=== PATIENT | female | born 1945 | race Caucasian/White ===

== ENCOUNTER 2021-08-17 11:02 | Inpatient (IN) | payer OTHER ==
[2021-08-17] MEDS ORDERED: ALBUTEROL 2.5 MG/3 ML NEB SOL ONE (12:43)
[2021-08-17] MEDS ORDERED: METHYLPREDNISOLONE 125 MG INJ ONE (12:43)
[2021-08-17] MEDS ORDERED: IPRATROPIUM BROM 0.5MG/2.5ML ONE (12:43)
[2021-08-17] MEDS ORDERED: Levofloxacin 750mg IV 750 MG/150 ML BAG IV ONE (12:43)
[2021-08-17 12:48] LABS: Absolute Lymphocytes (CBC) 0.7 K/uL (0.7-4.9); Hematocrit 41.4 % (36.0-45.0); Lymphocytes % 4.1 % (15.3-44.8); MCV 91.1 fL (80-100); MPV 7.7 fL (7.6-11.3); RBC Red Blood Cell Count 4.54 M/uL (3.86-4.86)
[2021-08-17 12:54] LABS: Protime INR 1.27
[2021-08-17 13:09] LABS: Albumin 3.3 g/dL (3.4-5.0); Bilirubin Direct 0.2 mg/dL (0-0.2); Bilirubin Total 0.5 mg/dL (0.2-1.0); CKMB Creatine Kinase MB 2.8 ng/mL (1.0-3.6); Magnesium 2.1 mg/dL (1.8-2.4); Potassium 3.3 mmol/L (3.5-5.1); Protein, Total 7.8 g/dL (6.4-8.2)
--- NOTE | 2021-08-17 13:12 | RAD REPORT ---
EXAM DESCRIPTION: RAD - Chest Single View - 08/17/2021 12:40 pm CLINICAL HISTORY: CONGESTION, cough, shortness of breath COMPARISON: None TECHNIQUE: AP portable chest image was obtained 08/17/2021 12:40 pm . FINDINGS: No focal consolidations seen. Interstitial markings are prominent with the baseline patter n for the patient unknown. This could be fibrosis or minimal interstitial edema/ infiltrate. No hilar mass or lymphadenopathy. Heart and vasculature are normal. No measurable pleural effusion and no pneumothorax. No acute bony abnormality seen. No acute aortic findings suspected. IMPRESSION: No focal mass or consolidation. Prominent interstitial pattern on a baseline examination. This could be fibrosis, mild edema, mild in filtrate or a combination.
--- NOTE | 2021-08-17 15:31 | EDPHYS ---
[facility] Name: Patito Maher Age: 76 yrs Sex: Female : 1945 Arrival Date: 08/17/2021 Time: 11:04 Bed 8 Private MD: [facility] ED Physician Awilda Santo HPI: 08/17 12:48 This 76 yrs old Female presents to ER via Ambulatory with complaints of Sinus ma2 Congestion, Cough, Shortness Of Breath, Decreased Appetite. 12:48 Severity of symptoms: At their worst the symptoms were moderate. Associated signs and ma2 symptoms: Pertinent negatives: ear ache, nausea, rhinorrhea, sore throat. 76-year-old female history of COPD presents with shortness of breath, cough productive of green sputum no chest pain no fever.. Historical: - Allergies: 12:06 tramadol; vg1 - PMHx: 12:06 Chronic obstructive lung disease; vg1 - Immunization history:: Client reports receiving the 2nd dose of the Covid vaccine. - Social history:: Smoking status: Patient reports the use of cigarette tobacco products, smokes one-half pack cigarettes per day. - Family history:: not pertinent. ROS: 12:48 Constitutional: Negative for fever, chills, and weight loss. ma2 12:48 All other systems are negative. Exam: 12:48 Constitutional: This is a well developed, well nourished patient who is awake, alert, ma2 and in no acute distress. Head/Face: Normocephalic, atraumatic. Eyes: Pupils equal round and reactive to light, extra-ocular motions intact. Lids and lashes normal. Conjunctiva and sclera are non-icteric and not injected. Cornea within normal limits. Periorbital areas with no swelling, redness, or edema. ENT: Nares patent. No nasal discharge, no septal abnormalities noted. Tympanic membranes are normal and external auditory canals are clear. Oropharynx with no redness, swelling, or masses, exudates, or evidence of obstruction, uvula midline. Mucous membranes moist. Neck: Trachea midline, no thyromegaly or masses palpated, and no cervical lymphadenopathy. Supple, full range of motion without nuchal rigidity, or vertebral point tenderness. No Meningismus. Chest/axilla: Normal chest wall appearance and motion. Nontender with no deformity. No lesions are appreciated. Cardiovascular: Regular rate and rhythm with a normal S1 and S2. No gallops, murmurs, or rubs. Normal PMI, no JVD. No pulse deficits. Respiratory: wheezes all over, Lungs have equal breath sounds bilaterally, clear to auscultation and percussion. No rales, rhonchi noted. No increased work of breathing, no retractions or nasal flaring. Abdomen/GI: Soft, non-tender, with normal bowel sounds. No distension or tympany. No guarding or rebound. No evidence of tenderness throughout. MS/ Extremity: Pulses equal, no cyanosis. Neurovascular intact. Full, normal range of motion. Neuro: Awake and alert, GCS 15, oriented to person, place, time, and situation. Cranial nerves II-XII grossly intact. Motor strength 5/5 in all extremities. Sensory grossly intact. Cerebellar exam normal. Normal gait. Vital Signs: 11:53 BP 119 / 79; Pulse 102; Resp 22; Temp 97.9(TE); Pulse Ox 77% on R/A; Weight 74.84 kg; vg1 Height 5 ft. 4 in. (162.56 cm); Pain 0/10; 11:54 Pulse Ox 96% on 15% Non-rebreather mask; vg1 11:58 Pulse Ox 93% on 4 lpm NC; vg1 12:21 BP 104 / 87; Pulse 100; Resp 16; Pulse Ox 95% on 4 lpm NC; ld1 13:27 BP 106 / 76; Pulse 101; Resp 18; Pulse Ox 98% on 3 lpm NC; Pain 0/10; ld1 15:09 BP 117 / 83; Pulse 92; Resp 15; Pulse Ox 95% on 4 lpm NC; ld1 16:47 BP 112 / 79; Pulse 93; Resp 17; Pulse Ox 95% on 4 lpm NC; ld1 11:53 Body Mass Index 28.32 (74.84 kg, 162.56 cm) vg1 MDM: 12:02 Patient medically screened. ma2 15:29 Differential Diagnosis: Upper Respiratory Infection Sinusitis Pharyngitis. Data ma2 reviewed: vital signs, nurses notes. Counseling: I had a detailed discussion with the patient and/or guardian regarding: the historical points, exam findings, and any diagnostic results supporting the discharge/admit diagnosis, the presence of at least one elevated blood pressure reading (>120/80) during this emergency department visit, the need for outpatient follow up. Response to treatment: the patient's symptoms have markedly improved after treatment. 08/17 12:12 Order name: SARS-COV-2 RT PCR (Document "Date of Onset" if Symptomatic); Complete Time: em1 13:08/17 12:12 Order name: Flu; Complete Time: 13:23 08/17 12:28 Order name: BMP; Complete Time: 13:23 il08/17 12:28 Order name: Blood Culture Adult (2) il2 08/17 12:28 Order name: CBC with Diff; Complete Time: 13:23 il08/17 12:28 Order name: CPK; Complete Time: 13:23 il08/17 12:28 Order name: Ckmb; Complete Time: 13:23 il08/17 12:28 Order name: D-Dimer; Complete Time: 13:23 il08/17 12:28 Order name: Hepatic Function; Complete Time: 13:23 08/17 12:28 Order name: Lipase; Complete Time: 13:23 il08/17 12:28 Order name: Magnesium; Complete Time: 13:23 il08/17 12:28 Order name: NT PRO-BNP; Complete Time: 13:23 08/17 12:28 Order name: PT-INR; Complete Time: 13:23 il08/17 12:28 Order name: Ptt, Activated; Complete Time: 13:23 [facility] 08/17 16:02 Order name: Basic Metabolic Panel [facility] [place] 08/17 16:02 Order name: Basic Metabolic Panel [facility] [place] 08/17 16:02 Order name: CBC with Automated Diff [facility] [place] 08/17 16:02 Order name: CBC with Automated Diff [facility] [place] 08/17 16:02 Order name: CKMB Creatine Kinase MB [facility] [place] 08/17 16:02 Order name: CKMB Creatine Kinase MB [facility] [place] 08/17 16:02 Order name: CKMB Creatine Kinase MB [facility] [place] 08/17 16:02 Order name: CKMB Creatine Kinase MB [facility] [place] 08/17 16:02 Order name: Creatine Phosphokinase [facility] [place] 08/17 16:02 Order name: Creatine Phosphokinase [facility] [place] 08/17 16:02 Order name: Creatine Phosphokinase [facility] [place] 08/17 16:02 Order name: Creatine Phosphokinase [facility] [place] 08/17 16:02 Order name: Lipid Profile [facility] [place] 08/17 16:02 Order name: Lipid Profile [facility] [place] 08/17 12:28 Order name: XRAY CXR (1 view); Complete Time: 13:23 [facility] 08/17 12:28 Order name: EKG; Complete Time: 12:29 [facility] 08/17 12:28 Order name: Cardiac monitoring; Complete Time: 12:30 [facility] 08/17 12:28 Order name: EKG - Nurse/Tech; Complete Time: 12:30 [facility] 08/17 12:28 Order name: IV Saline Lock; Complete Time: 12:30 [facility] 08/17 12:28 Order name: Labs collected and sent; Complete Time: 12:30 [facility] 08/17 12:28 Order name: O2 Per Protocol; Complete Time: 12:30 [facility] 08/17 12:28 Order name: O2 Sat Monitoring; Complete Time: 12:30 [facility] 08/17 16:02 Order name: 60g Consistent Carbohydrate (ADA 1800/2000) [facility] [place] 08/17 16:02 Order name: Magnesium [facility] [place] 08/17 16:02 Order name: Magnesium [facility] [place] Administered Medications: 12:57 Drug: LevaQUIN (levofloxacin) 750 mg Volume: 150 ml; Route: IVPB; Infused Over: 90 ld1 mins; Site: right antecubital; 12:59 Drug: Albuterol 2.5 mg Route: Inhalation; ld1 12:59 Drug: AtroVENT (ipratropium) Aerosol 0.5 mg Route: Inhalation; ld1 12:59 Drug: SOLU-Medrol (methylPrednisoLONE) 125 mg Route: IVP; Site: right antecubital; ld1 Disposition Summary: 08/17/21 15:30 Hospitalization Ordered Hospitalization Status: Inpatient Admission ma2 Provider: Edu Gao ma2 Location: Telemetry/MedSurg (Inpatient) ma2 Condition: Stable ma2 Problem: new ma2 Symptoms: are unchanged ma2 Bed/Room Type: Standard il2 Room Assignment: 410(08/17/21 18:08) dw Diagnosis - Other pneumonia, unspecified organism ma2 - COPD/ Chronic obstructive pulmonary disease, unspecified ma2 Forms: - Medication Reconciliation Form ma2 - SBAR form ma2 Signatures: Dispatcher [employer] Kenzie Spain RN RN dw Awilda Santo MD MD ma2 Evelina Herrera RN RN vg1 Francesca Chin RN RN ld1 Corrections: (The following items were deleted from the chart) 18:08 15:30 jose a gardner
--- NOTE | 2021-08-17 15:31 | ER ---
Nurse's Notes [facility] Name: Patito Maher Age: 76 yrs Sex: Female : 1945 Arrival Date: 08/17/2021 Time: 11:04 Bed 8 Private MD: Fly Mohamud Diagnosis: Other pneumonia, unspecified organism;COPD/ Chronic obstructive pulmonary disease, unspecified Presentation: 08/17 11:58 Initial Sepsis Screen: Does the patient meet any 2 criteria? RR > 20 per min. HR > 90 vg1 bpm. Yes Does the patient have a suspected source of infection? No. Patient's initial sepsis screen is negative. Risk Assessment: Do you want to hurt yourself or someone else? Patient reports no desire to harm self or others. Onset of symptoms was August 14, 2021. 11:58 Acuity: CAROLEE 2 vg1 12:02 Chief complaint: Patient states: cough, congestion, and SOB x 4 days, also states vg1 nausea; denies V/D. Pt presented with 77% RA in triage; placed on non rebreather 15 mL 96%; placed in room at 4 L NC O2 at 93%. Coronavirus screen: Vaccine status: Patient reports receiving the 2nd dose of the covid vaccine. Client denies travel out of the [place] in the last 14 days. Ebola Screen: Patient denies exposure to infectious person. Patient denies travel to an Ebola-affected area in the 21 days before illness onset. 12:02 Method Of Arrival: Ambulatory vg1 Triage Assessment: 12:06 General: Appears uncomfortable, Behavior is calm, cooperative. Pain: Denies pain. vg1 Respiratory: Reports shortness of breath at rest on exertion cough that is labored breathing Onset: The symptoms/episode began/occurred x 4 days, the patient has moderate shortness of breath. Historical: - Allergies: 12:06 tramadol; vg1 - PMHx: 12:06 Chronic obstructive lung disease; vg1 - Immunization history:: Client reports receiving the 2nd dose of the Covid vaccine. - Social history:: Smoking status: Patient reports the use of cigarette tobacco products, smokes one-half pack cigarettes per day. - Family history:: not pertinent. Screenin:21 Abuse screen: Denies threats or abuse. Denies injuries from another. Nutritional ld1 screening: No deficits noted. Tuberculosis screening: No symptoms or risk factors identified. Fall Risk None identified. Assessment: 12:21 General: Appears in no apparent distress. comfortable, Behavior is calm, cooperative, ld1 appropriate for age. Pain: Denies pain. Neuro: Level of Consciousness is awake, alert, obeys commands, Oriented to person, place, time, situation, Appropriate for age. Cardiovascular: Capillary refill < 3 seconds Patient's skin is warm and dry. Rhythm is sinus rhythm. Respiratory: Reports shortness of breath at rest on exertion Airway is patent Respiratory effort is even, unlabored, Breath sounds with wheezes bilaterally. Onset: The symptoms/episode began/occurred just prior to arrival, the patient has mild shortness of breath. GI: Abdomen is round non-distended. : No signs and/or symptoms were reported regarding the genitourinary system. EENT: No signs and/or symptoms were reported regarding the EENT system. Derm: No signs and/or symptoms reported regarding the dermatologic system. Musculoskeletal: No signs and/or symptoms reported regarding the musculoskeletal system. 15:09 Reassessment: Patient appears in no apparent distress at this time. Patient and/or ld1 family updated on plan of care and expected duration. Pain level reassessed. Patient is alert, oriented x 3, equal unlabored respirations, skin warm/dry/pink. 18:20 Reassessment: Attempted to call report - nurse was busy and would not accept report. ld1 Vital Signs: 11:53 BP 119 / 79; Pulse 102; Resp 22; Temp 97.9(TE); Pulse Ox 77% on R/A; Weight 74.84 kg; vg1 Height 5 ft. 4 in. (162.56 cm); Pain 0/10; 11:54 Pulse Ox 96% on 15% Non-rebreather mask; vg1 11:58 Pulse Ox 93% on 4 lpm NC; vg1 12:21 BP 104 / 87; Pulse 100; Resp 16; Pulse Ox 95% on 4 lpm NC; ld1 13:27 BP 106 / 76; Pulse 101; Resp 18; Pulse Ox 98% on 3 lpm NC; Pain 0/10; ld1 15:09 BP 117 / 83; Pulse 92; Resp 15; Pulse Ox 95% on 4 lpm NC; ld1 16:47 BP 112 / 79; Pulse 93; Resp 17; Pulse Ox 95% on 4 lpm NC; ld1 11:53 Body Mass Index 28.32 (74.84 kg, 162.56 cm) vg1 ED Course: 11:04 Patient arrived in ED. as 11:04 Fly Mohamud DO is Private Physician. as 11:56 Awilda Santo MD is Attending Physician. ma2 12:06 Triage completed. vg1 12:06 Arm band placed on. vg1 12:11 Francesca Chin, JAQUAN is Primary Nurse. ld1 12:15 SARS-COV-2 RT PCR (Document "Date of Onset" if Symptomatic) Sent. zm 12:15 Flu Sent. zm 12:21 Patient has correct armband on for positive identification. Placed in gown. Bed in low ld1 position. Call light in reach. Side rails up X2. monitoring tech on. Pulse ox on. NIBP on. Door closed. Noise minimized. Warm blanket given. 12:21 No provider procedures requiring assistance completed. ld1 12:35 Flu Sent. ld1 12:35 SARS-COV-2 RT PCR (Document "Date of Onset" if Symptomatic) Sent. ld1 12:42 XRAY CXR (1 view) In Process Unspecified. EDMS 15:29 Edu Gao MD is Hospitalizing Provider. ma2 Administered Medications: 12:57 Drug: LevaQUIN (levofloxacin) 750 mg Volume: 150 ml; Route: IVPB; Infused Over: 90 ld1 mins; Site: right antecubital; 12:59 Drug: Albuterol 2.5 mg Route: Inhalation; ld1 12:59 Drug: AtroVENT (ipratropium) Aerosol 0.5 mg Route: Inhalation; ld1 12:59 Drug: SOLU-Medrol (methylPrednisoLONE) 125 mg Route: IVP; Site: right antecubital; ld1 Medication: 12:21 VIS not applicable for this client. ld1 Outcome: 15:30 Decision to Hospitalize by Provider. ma2 19:34 Patient left the ED. bb Signatures: Dispatcher [employer] EDMS Misty Krishna Brenda, RN RN bb Alzahri, Mohammad, MD MD ma2 Evelina Herrera RN RN 1 Francesca Chin RN RN ld1 Michela Krishna
[2021-08-17] MEDS ORDERED: ACETAMINOPHEN 500 MG TAB PO PRN (15:53)
[2021-08-17] MEDS ORDERED: ALBUTEROL 2.5 MG/3 ML NEB SOL NEB PRN (15:53)
[2021-08-17] MEDS ORDERED: IPRATROPIUM BROM 0.5MG/2.5ML NEB PRN (15:53)
--- NOTE | 2021-08-17 16:02 | P.HP ---
Certification for Inpatient Patient admitted to: Observation With expected LOS: <2 Midnights Practitioner: I am a practitioner with admitting privileges, knowledge of patient current condition, hospital course, and medical plan of care. Services: Services provided to patient in accordance with Admission requirements found in Title 42 Section 412.3 of the Code of Federal Regulations Patient History Date of Service: 08/17/21 Reason for admission: COPD exacerbation, Pneumonia, Resp failure with hypoxia. History of Present Illness: 76-year-old female patient with medical history significant for coronary artery disease, hypertension, hyperlipidemia, COPD who was evaluated for management of COPD exacerbation. Initially she had complained of shortness of breath that started suddenly with no associated fever or chills. Neck. She denies any issues with chest pain, swelling of the lower extremity. In the ED she had x- ray done that revealed infiltrate bilaterally and there was suspicion for pneumonia as she also had elevated white cell of 16,000. She was started on empiric antibiotic therapy of Levaquin and was a started on DuoNeb therapy and was admitted for observation. Home medications list reviewed: Yes - Past Medical/Surgical History Has patient received pneumonia vaccine in the past: No Diabetic: No -: COPD -: Hypertension -: Hyperlipidemia - Social History Smoking Status: Former smoker Smoking therapy provided: No Alcohol use: No CD- Drugs: No Caffeine use: Yes Review of Systems General: Unremarkable Eyes: Unremarkable ENT: Unremarkable Respiratory: Cough, Shortness of Breath, SOB with Excertion Cardiovascular: Unremarkable Gastrointestinal: Unremarkable Genitourinary: Unremarkable Musculoskeletal: Unremarkable Neurological: Unremarkable Physical Examination - Physical Exam General: Alert, Oriented x3 HEENT: Normocephalic Neck: Supple Respiratory: Diminished Cardiovascular: Regular rate/rhythm, Normal S1 S2 Gastrointestinal: Soft and benign Musculoskeletal: No swelling Neurological: Normal speech, Normal strength at 5/5 x4 extr - Studies Laboratory Data (last 24 hrs) 08/17/21 12:33: PT 14.0 H, INR 1.27, APTT 29.8 08/17/21 12:33: WBC 16.3 H, Hgb 13.4, Hct 41.4, Plt Count 255 08/17/21 12:33: Sodium 139, Potassium 3.3 L, BUN 22 H, Creatinine 0.76, Glucose 132 H, Magnesium 2.1, Total Bilirubin 0.5, AST 28, ALT 39, Alkaline Phosphatase 103, Lipase 16 L Microbiology Data (last 24 hrs): 08/17/21 12:15 Nasopharnyx Influenza Type A Antigen Screen - Final 08/17/21 12:15 Nasopharnyx Influenza Type B Antigen Screen - Final Assessment and Plan - Plan COPD Exacerbation: Patient does have COPD exacerbation with pneumonia. White cell count is increased with value of 16,000. Chest x-ray shows infiltrate. Continue Levaquin for treatment. Continued . Continue Solu-Medrol. Pneumonia: Chest x-ray shows infiltrates bilaterally. Levaquin started for empiric therapy. Monitor closely. Hypertension: We will monitor vital signs per unit protocol and continue antihypertensive medications. Hyperlipidemia: We will continue statin therapy. Prophylaxis: Lovenox for DVT prophylaxis. CODE STATUS: Full code. Disposition: We will have patient evaluated and discharge in next 24 to 48 hours once clinically stable. - Advance Directives Does patient have a Living Will: No Does patient have a Durable POA for Healthcare: No
[2021-08-17] MEDS: INSULIN -REGULAR HUMAN 50 UNIT/0.5 ML ML SQ SCH ×2 (16:30→22:32)
[2021-08-17 17:38] LABS: CKMB Creatine Kinase MB 2.9 ng/mL (1.0-3.6)
[2021-08-17] MEDS: METHYLPREDNISOLONE 40 MG INJ IV SCH (22:27)
[2021-08-18 01:11] VITALS: BMI 28.3
[2021-08-18 01:11] LABS: CKMB Creatine Kinase MB 4.1 ng/mL (1.0-3.6)
[2021-08-18 04:31] LABS: Absolute Lymphocytes (CBC) 0.6 K/uL (0.7-4.9); Hematocrit 38.5 % (36.0-45.0); Lymphocytes % 5.2 % (15.3-44.8); MCV 89.5 fL (80-100); MPV 7.8 fL (7.6-11.3)
[2021-08-18 04:48] LABS: Magnesium 2.2 mg/dL (1.8-2.4); Phosphorus 2.5 mg/dL (2.5-4.9); Potassium 3.8 mmol/L (3.5-5.1)
[2021-08-18 05:07] LABS: Blood Morphology Comment NOT SEEN (NOT SEEN); Platelet Estimate ADEQ
[2021-08-18] MEDS: INSULIN -REGULAR HUMAN 50 UNIT/0.5 ML ML SQ SCH ×4 (07:30→21:00)
[2021-08-18] MEDS: ENOXAPARIN 40 MG/0.4 ML SQ SCH (08:28)
[2021-08-18] MEDS: POTASS/SODIUM PHOSPHATE 1 PKT POWD.PACK PO SCH ×3 (08:29→10:16)
[2021-08-18] MEDS: METHYLPREDNISOLONE 40 MG INJ IV SCH ×4 (08:29→23:42)
[2021-08-18] MEDS ORDERED: POTASSIUM CL SA 10 MEQ TAB PO ONE (09:00)
[2021-08-18 11:00] LABS: CKMB Creatine Kinase MB 3.8 ng/mL (1.0-3.6)
[2021-08-18] MEDS ORDERED: Levofloxacin 750mg IV 750 MG/150 ML BAG IV SCH (12:00)
[2021-08-18] MEDS: ALBUTEROL 2.5 MG/3 ML NEB SOL NEB SCH ×3 (12:03→20:25)
[2021-08-18] MEDS: IPRATROPIUM BROM 0.5MG/2.5ML NEB SCH ×3 (12:03→20:25)
[2021-08-18] MEDS ORDERED: PNEUMOCOCCAL VACCINE 0.5 ML IMVAC ONE (13:00)
--- NOTE | 2021-08-18 14:42 | EKG ---
Test Date: 2021-08-17 Test Time: 12:19:10 Framework Developer: VINAYAK MEASUREMENT RESULTS: Intervals: Rate: 98 NE: 128 QRSD: 76 QT: 370 QTc: 472 [place]: P: 71 NE: 128 QRS: 54 T: 67 INTERPRETIVE STATEMENTS: Normal sinus rhythm Septal infarct, age undetermined Abnormal ECG No previous ECG available for comparison Electronically Signed On 08-18-21 14:40:47 CDT by Dylan Clayton
[2021-08-19] MEDS: IPRATROPIUM BROM 0.5MG/2.5ML NEB SCH ×3 (01:30→14:06)
[2021-08-19] MEDS: ALBUTEROL 2.5 MG/3 ML NEB SOL NEB SCH ×3 (01:30→14:06)
[2021-08-19] MEDS: METHYLPREDNISOLONE 40 MG INJ IV SCH (05:22)
[2021-08-19 05:48] LABS: Potassium 4.4 mmol/L (3.5-5.1)
[2021-08-19] MEDS: INSULIN -REGULAR HUMAN 50 UNIT/0.5 ML ML SQ SCH ×2 (07:30→11:27)
[2021-08-19] MEDS: ENOXAPARIN 40 MG/0.4 ML SQ SCH (08:31)
--- NOTE | 2021-08-19 08:42 | P.CNS ---
Date of Consult: 08/19/21 Reason for Consult: COPD exacerbation Chief Complaint: COPD exacerbation History of Present Illness: Patient is 76 years of age just come back from [place] has been sick for about 3 weeks having this productive phlegm apparently recently had some urinary frequency and urgency with a history of COPD and active smoker uses nebulizers and inhalers at home feeling a little better still short of breath Allergies No Known Allergies Allergy (Unverified 08/17/21 20:16) Home Medications: Albuterol Sulfate [Proair Hfa] 2 puff PO Q4H PRN 08/17/21 Citalopram Hydrobromide [Citalopram HBr] 1 tab PO DAILY 08/17/21 Hydrocodone Bit/Acetaminophen [[place] 7.5-325 Tablet] 1 tab PO BID PRN 08/17/21 Ipratropium/Albuterol Sulfate [Iprat-Albut 0.5-3(2.5) mg/3 ml] 1 vial.neb JORDAN Q6H 08/17/21 - Past Medical/Surgical History Diabetic: No -: COPD -: Hypertension -: Hyperlipidemia - Social History Smoking Status: Current every day smoker Alcohol use: No CD- Drugs: No Caffeine use: Yes Place of Residence: Home Review of Systems 10-point ROS is otherwise unremarkable Physical Examination Temp Pulse Resp BP Pulse Ox 97.9 F 79 19 118/62 95 08/19/21 04:00 08/19/21 04:00 08/19/21 04:00 08/19/21 04:00 08/19/21 04:00 General: Alert, In no apparent distress, Oriented x3 Respiratory: Diminished, Expiratory wheezes Cardiovascular: No edema, Normal pulses, Regular rate/rhythm Gastrointestinal: Normal bowel sounds, Soft and benign - Problems (1) COPD exacerbation Current Visit: Yes Status: Acute Plan: Patient is 76 years of age admitted with COPD exacerbation active smoker feeling better chest x-ray shows some interstitial changes white count elevated mild bandemia vital signs stable oxygenation satisfactory change to p.o. levofloxacin sputum cultures continue with nebs bronchodilators and steroids stable discharge tomorrow
[2021-08-19] MEDS ORDERED: levoFLOXacin 750 MG TAB PO SCH (09:00)
[2021-08-19] MEDS ORDERED: METHYLPREDNISOLONE 40 MG INJ IV SCH (09:00)
[2021-08-19 11:59] VITALS: BP 141/81; TEMP 96.8
[2021-08-19 14:55] VITALS: O2SAT 93
--- NOTE | 2021-08-19 23:59 | P.DS ---
Discharge Date: 08/19/21 Disposition: ROUTINE DISCHARGE Discharge Condition: GOOD Reason for Admission: COPD exacerbation Brief History of Present Illness: 76-year-old female patient with medical history significant for coronary artery disease, hypertension, hyperlipidemia, COPD who was evaluated for management of COPD exacerbation. Initially she had complained of shortness of breath that started suddenly with no associated fever or chills. Neck. She denies any issues with chest pain, swelling of the lower extremity. In the ED she had x- ray done that revealed infiltrate bilaterally and there was suspicion for pneumonia as she also had elevated white cell of 16,000. She was started on empiric antibiotic therapy of Levaquin and was a started on DuoNeb therapy and was admitted for observation. Hospital Course: Patient is breathing much better. We will arrange for home oxygen. She will also get nebulizer treatments as an outpatient. She will follow with Pulmonary as well. Clinically she is feeling much better and she is at her baseline and wanted to go home because it is our signs per day. She will follow-up as an outpatient in 1-2 weeks with Pulmonary and PCP. Vital Signs/Physical Exam: Temp Pulse Resp BP Pulse Ox 96.8 F 80 14 141/81 H 96 08/19/21 11:58 08/19/21 11:58 08/19/21 11:58 08/19/21 11:58 08/19/21 11:58 General: Alert, In no apparent distress, Oriented x3 Laboratory Data at Discharge: WBC 11.4 K/uL (4.3-10.9) H D 08/18/21 04:02 Hgb 12.7 g/dL (12.0-15.0) 08/18/21 04:02 Hct 38.5 % (36.0-45.0) 08/18/21 04:02 Plt Count 252 K/uL (152-406) 08/18/21 04:02 PT 14.0 SECONDS (9.5-12.5) H 08/17/21 12:33 INR 1.27 08/17/21 12:33 APTT 29.8 SECONDS (24.3-36.9) 08/17/21 12:33 Sodium 143 mmol/L (136-145) 08/19/21 05:17 Potassium 4.4 mmol/L (3.5-5.1) 08/19/21 05:17 BUN 26 mg/dL (7-18) H 08/19/21 05:17 Creatinine 0.61 mg/dL (0.55-1.3) 08/19/21 05:17 Glucose 197 mg/dL (74-106) H 08/19/21 05:17 Phosphorus 2.5 mg/dL (2.5-4.9) 08/18/21 04:02 Magnesium 2.2 mg/dL (1.8-2.4) 08/18/21 04:02 Total Bilirubin 0.5 mg/dL (0.2-1.0) 08/17/21 12:33 AST 28 U/L (15-37) 08/17/21 12:33 ALT 39 U/L (12-78) 08/17/21 12:33 Alkaline Phosphatase 103 U/L (45-117) 08/17/21 12:33 Triglycerides 67 mg/dL (<150) 08/18/21 04:02 Cholesterol 158 mg/dL (<200) 08/18/21 04:02 HDL Cholesterol 47 mg/dL (40-60) 08/18/21 04:02 Cholesterol/HDL Ratio 3.36 08/18/21 04:02 Lipase 16 U/L (73-393) L 08/17/21 12:33 Home Medications: Albuterol Sulfate [Proair Hfa] 2 puff PO Q4H PRN 08/17/21 Citalopram Hydrobromide [Citalopram HBr] 1 tab PO DAILY 08/17/21 Hydrocodone Bit/Acetaminophen [[place] 7.5-325 Tablet] 1 tab PO BID PRN 08/17/21 Ipratropium/Albuterol Sulfate [Iprat-Albut 0.5-3(2.5) mg/3 ml] 1 vial.neb JORDAN Q6H 08/17/21 Albuterol Neb [Proventil 0.083% Neb Soln] 2.5 mg NEB [id number] #60 amp 08/19/21 Ipratropium Neb [Atrovent*] 0.5 mg NEB [id number] #60 amp 08/19/21 levoFLOXacin [Levaquin*] 750 mg PO DAILY #5 tab 08/19/21 predniSONE [Prednisone*] 20 mg PO BID #11 tab 08/19/21 New Medications: Ipratropium Neb [Atrovent*] 0.5 mg NEB [id number] #60 amp levoFLOXacin [Levaquin*] 750 mg PO DAILY #5 tab predniSONE [Prednisone*] 20 mg PO BID #11 tab Albuterol Neb [Proventil 0.083% Neb Soln] 2.5 mg NEB [id number] #60 amp Physician Discharge Instructions: -DC IV and DC home -Follow-up with PCP in 1 to 2 weeks -Follow-up with Pulmonary in 1 to 2 weeks -Please call Dr. Kelly at [phone] if any questions regarding hospital stay -Please call nursing station at [phone] if any nursing or medication questions -Return to the emergency room if symptoms worsen Diet: AHA Activity: Fall precautions Followup: Howard Rogers MD [ACTIVE - CAN ADMIT] - 1 Week (Call for appointment.) Fly Mohamud DO [Primary Care Provider] - 1-2 Weeks (call for appointment.) Time spent managing pt's care (in minutes): 35
== END 2021-08-19 15:50 | disposition home or self-care (01) | DRG 190 ==
LOC: ER 11:02 → ERHOLD 15:54 → 4TH 19:25 → OBSVTOIN 08-18 13:50
PROVIDERS: ADMIT Internal Medicine Nephrology; ATTEND Internal Medicine Nephrology
DX: J44.0 Chronic obstructive pulmonary disease with (acute) lower respiratory infection (principal); J18.9 Pneumonia, unspecified organism; J44.1 Chronic obstructive pulmonary disease with (acute) exacerbation; I10 Essential (primary) hypertension; I25.10 Atherosclerotic heart disease of native coronary artery without angina pectoris; E78.5 Hyperlipidemia, unspecified; F17.210 Nicotine dependence, cigarettes, uncomplicated; Z20.822 Contact with and (suspected) exposure to COVID-19
CPT/HCPCS: 36415; 71045; 80048; 80061; 80076; 82550; 82553; 82947; 83690; 83735; 83880; 84100; 85025; 85379; 85610; 85730; 87040; 87804; 93005; 94640; 96374; 96375; 99285; G0378; J1650; J1815; J2920; J2930; U0003

== ENCOUNTER 2023-02-28 08:59 | Inpatient (IN) | payer OTHER ==
[2023-02-28] MEDS ORDERED: ONDANSETRON 4 MG/2 ML VIAL ONE (09:20)
[2023-02-28] MEDS ORDERED: NA CHLORIDE 0.9% 1,000 ML ONE ×2 (09:21→13:56)
[2023-02-28] MEDS ORDERED: MORPHINE 4 MG/ML SYR ONE ×2 (09:21→13:55)
[2023-02-28 09:26] LABS: Absolute Lymphocytes (CBC) 0.5 K/uL (0.7-4.9); Hematocrit 45.3 % (36.0-45.0); Lymphocytes % 4.1 % (15.3-44.8); MCV 91.2 fL (80-100); Platelets 299 thou/uL (152-406); RBC Red Blood Cell Count 4.97 M/uL (3.86-4.86)
[2023-02-28 09:44] LABS: Albumin 3.5 g/dL (3.4-5.0); Bilirubin Total 0.6 mg/dL (0.2-1.0); Potassium 4.5 mEq/L (3.5-5.1); Protein, Total 7.5 g/dL (6.4-8.2)
[2023-02-28] MEDS ORDERED: HYDROMORPHONE HCL 0.5 MG/0.5 ML INJ ONE (10:13)
[2023-02-28 10:36] LABS: Blood Morphology Comment NOT SEEN (NOT SEEN); Platelet Estimate ADEQ; White Blood Cell Scan OK (OK)
--- NOTE | 2023-02-28 10:55 | RAD REPORT ---
EXAM DESCRIPTION: CT - Abdomen Pelvis W Contrast - 02/28/2023 9:55 am CLINICAL HISTORY: ABD PAIN COMPARISON: No comparisons TECHNIQUE: Thin cut axial CT imaging of the abdomen and pelvis was performed following intravenous a dministration of 100 mL Isovue 300. Multiplanar reformats were generated and reviewed. All CT scans are performed using dose optimization technique as appropriate and may include automated exposure control or mA/KV adjustment according to patient size. FINDINGS: No suspicious findings in the lung bases. The liver, spleen, adrenal glands, and pancreas show no suspicious findings. Gallbladder and biliary tree are also without suspicious finding. Symmetric renal function is seen with no hydronephrosis or suspicious renal mass. Few parapelvic cyst s more pronounced on the left. Nonobstructing right renal calculi, largest measuring 3 mm. Mild colonic diverticulosis. Mild fluid distention and dilation of mid to distal small bowel loops. M ucosal hyperenhancement and adjacent fat stranding in the mesenteric. These gradually progress to a s egment of nondistended distal ileum with wall thickening and adjacent fat stranding extending to the terminal ileum. Mild free pelvic fluid. No free air, fluid collections, or other inflammatory strandi ng. No hernia, mass or bulky lymphadenopathy. The urinary bladder is without significant finding. No suspicious bony findings. IMPRESSION: Long segments of inflamed mid to distal small bowel with mild fluid distention proximall y, with gradual transition to distal to terminal ileum nondistention with persistent wall thickening and inflammation. Trace free pelvic fluid. Findings raise concern for infectious or inflammatory ente ritis, including but not limited to inflammatory bowel disease. Mild colonic diverticulosis. Nonobstructing right renal calculi, up to 3 mm in size.
--- NOTE | 2023-02-28 11:02 | EDPHYS ---
Physician Documentation [facility] Name: Patito Maher Age: 77 yrs Sex: Female : 1945 Arrival Date: 02/28/2023 Time: 08:59 Bed 5 Private MD: ED Physician Yfn Kolb HPI: 02/28 09:04 This 77 yrs old Female presents to ER via Unassigned with complaints of abdominal pain. jh7 09:04 The patient presents with abdominal pain that is diffuse. Onset: The symptoms/episode jh7 began/occurred this morning. The symptoms do not radiate. Associated signs and symptoms: Pertinent positives: nausea, Pertinent negatives: diarrhea, vomiting. The symptoms are described as constant, stabbing. Modifying factors: the symptoms are aggravated by breathing deeply, movement. Patient reports abdominal pain and nausea since this morning. Reports that she thinks she ate a bad taco salad last night. EMS reports the patient was hypotensive on scene at 80/40. Patient's BP increased after 200 mL of IV fluids. History of COPD. Last BM was normal and yesterday. PCP is Dr. Mohamud. Patient reports no other PMH or surgical history.. Historical: - Allergies: 09:12 tramadol; db - PMHx: 09:12 Chronic obstructive lung disease; db - Immunization history:: Adult Immunizations unknown. - Social history:: Smoking status: Patient reports the use of cigarette tobacco products, denies chronic smoking, but will smoke occasionally. ROS: 09:04 Constitutional: Negative for fever, chills, and weight loss, Neck: Negative for injury, jh7 pain, and swelling, Cardiovascular: Negative for chest pain, palpitations, and edema, Respiratory: Negative for shortness of breath, cough, wheezing, and pleuritic chest pain, Back: Negative for injury and pain, MS/Extremity: Negative for injury and deformity, Skin: Negative for injury, rash, and discoloration, Neuro: Negative for headache, weakness, numbness, tingling, and seizure, 09:04 Abdomen/GI: Positive for abdominal pain, nausea, Negative for vomiting, diarrhea, constipation, black/tarry stool, 09:04 All other systems are negative, Exam: 09:04 Head/Face: Normocephalic, atraumatic. Eyes: Pupils equal round and reactive to light, jh7 extra-ocular motions intact. Lids and lashes normal. Conjunctiva and sclera are non-icteric and not injected. Cornea within normal limits. Periorbital areas with no swelling, redness, or edema. ENT: Nares patent. No nasal discharge, no septal abnormalities noted. Tympanic membranes are normal and external auditory canals are clear. Oropharynx with no redness, swelling, or masses, exudates, or evidence of obstruction, uvula midline. Mucous membranes moist. Neck: Trachea midline, no thyromegaly or masses palpated, and no cervical lymphadenopathy. Supple, full range of motion without nuchal rigidity, or vertebral point tenderness. No Meningismus. Cardiovascular: Regular rate and rhythm with a normal S1 and S2. No gallops, murmurs, or rubs. Normal PMI, no JVD. No pulse deficits. Respiratory: Lungs have equal breath sounds bilaterally, clear to auscultation and percussion. No rales, rhonchi or wheezes noted. No increased work of breathing, no retractions or nasal flaring. Back: No spinal tenderness. No costovertebral tenderness. Full range of motion. Skin: Warm, dry with normal turgor. Normal color with no rashes, no lesions, and no evidence of cellulitis. MS/ Extremity: Pulses equal, no cyanosis. Neurovascular intact. Full, normal range of motion. Neuro: Awake and alert, GCS 15, oriented to person, place, time, and situation. Motor strength 5/5 in all extremities. Sensory grossly intact. Normal gait. 09:04 Constitutional: The patient appears alert, awake, in obvious pain, 09:04 Abdomen/GI: Inspection: abdomen appears normal, Bowel sounds: normal, Palpation: soft, moderate abdominal tenderness, in all quadrants, Vital Signs: 09:00 BP 151 / 79; Pulse 65; Resp 18; Temp 98.9; Pulse Ox 98% on R/A; Weight 72.57 kg; Height db 5 ft. 2 in. ; 10:08 BP 138 / 71; Pulse 68; Resp 18; Pulse Ox 97% on 2 lpm NC; db 14:00 BP 143 / 92; Pulse 75; Resp 18; Pulse Ox 96% on 2 lpm NC; db 09:00 Body Mass Index 29.26 (72.57 kg, 157.48 cm) db MDM: 09:04 Patient medically screened. jh7 10:05 Medication response: morphine partially relieved the patient's pain. [facility] 11:00 Differential diagnosis: appendicitis, bowel obstruction, diverticulitis, gastritis, jh7 pancreatitis, Peritonitis, Pyelonephritis. Data reviewed: vital signs, nurses notes, lab test result(s), EKG, radiologic studies, CT scan. Consideration of Admission/Observation Patient was admitted/placed on observation. Management of patient was discussed with the following: Hospitalist: NATHAN Larson. I considered the following discharge prescriptions or medication management in the emergency department Medications were administered in the Emergency Department. See MAR. Independent interpretation of the following test(s) in the Emergency Department EKG: See my EKG interpretation above. Response to treatment: the patient's symptoms have mildly improved after treatment. 02/28 09:08 Order name: CBC with Diff; Complete Time: 10:41 [facility] 02/28 09:08 Order name: CMP; Complete Time: 09:54 [facility] 02/28 09:08 Order name: Lipase; Complete Time: 09:54 [facility] 02/28 09:08 Order name: Urinalysis w/ reflexes [facility] 02/28 09:08 Order name: Lactate w/ 2H reflex if indic.; Complete Time: 09:54 [facility] 02/28 10:36 Order name: CBC Smear Scan; Complete Time: 10:41 [facility] 02/28 11:30 Order name: Urinalysis w/ reflexes [facility] 02/28 11:30 Order name: Basic Metabolic Panel EDMS 02/28 11:30 Order name: Basic Metabolic Panel EDMS 02/28 11:30 Order name: Basic Metabolic Panel EDMS 02/28 11:30 Order name: Basic Metabolic Panel EDMS 02/28 11:30 Order name: CBC with Automated Diff EDMS 02/28 11:30 Order name: CBC with Automated Diff EDMS 02/28 11:30 Order name: CBC with Automated Diff EDMS 02/28 11:30 Order name: CBC with Automated Diff EDMS 02/28 11:30 Order name: Magnesium EDMS 02/28 11:30 Order name: Magnesium EDMS 02/28 11:30 Order name: Magnesium EDMS 02/28 11:30 Order name: Magnesium EDMS 02/28 09:08 Order name: CT Abd/Pelvis - IV Contrast Only; Complete Time: 10:57 [facility] 02/28 09:08 Order name: IV Saline Lock; Complete Time: :30 [facility] 02/28 09:08 Order name: Labs collected and sent; Complete Time: [facility] 02/28 09:12 Order name: EKG - Nurse/Tech; Complete Time: :43 7 EC:39 Rate is 69 beats/min. Rhythm is regular. QRS [place] is Normal. [place] interval is normal at [facility] 130 msec. QRS interval is normal at 82 msec. QT interval is normal at 426 msec. No Q waves. T waves are Normal. Clinical impression: NSR w/ Non-specific ST/T Changes. Administered Medications: 09:25 Drug: NS 0.9% IV 1000 ml IV at 1 bolus Per protocol; 1000 mL bolus Route: IV; Rate: 1 db bolus; Site: left antecubital; 09:25 Drug: Ondansetron IVP 4 mg IVP once; over 2 minutes Route: IVP; Site: left antecubital; db 09:25 Drug: morphine IVP or IV 4 mg IVP once over 4 mins Route: IVP; Infused Over: 4 mins; db Site: left antecubital; 10:14 Drug: HYDROmorphone IVP 0.5 mg IVP once Route: IVP; Site: left antecubital; db 13:47 Follow up: Response: No adverse reaction db 11:25 Drug: metroNIDAZOLE IVPB 500 mg 100 ml IVPB at 200 ml/hr once over 30 mins Volume: 100 db ml; Route: IVPB; Rate: 200 ml/hr; Infused Over: 30 mins; Site: left antecubital; 12:08 Follow up: Response: No adverse reaction; IV Status: Completed infusion; IV Intake: db 100ml 12:08 Drug: Ciprofloxacin IVPB 400 mg 200 ml IVPB once over 60 mins Volume: 200 ml; Route: db IVPB; Infused Over: 60 mins; Site: left antecubital; Disposition Summary: 02/28/23 11:02 Hospitalization Ordered Notes: Hospitalization Status: Inpatient Admission [facility] Provider: Mercedes Suarez [facility] Location: Telemetry/MedSurg (Inpatient) [facility] Condition: Stable [facility] Problem: new [facility] Symptoms: are unchanged [facility] Bed/Room Type: Standard [facility] Room Assignment: 405(02/28/23 12:51) eb Diagnosis - Enteritis [facility] Forms: - Medication Reconciliation Form jh7 - SBAR form jh7 - Leadership Thank You Letter jh7 Addendum: 03/05/2023 09:22 I was immediately available for consultation during this patient's visit. I did not e c2 personally see the patient or discuss the patient with the MARYANA. . Signatures: Dispatcher [employer] EDElizabeth Dunbar Jennifer, PHARMACOLOGY PROFESSOR [facility]7 Tiffany Klein RN RN Yfn Medina MD MD ec2 Corrections: (The following items were deleted from the chart) 02/28 12:51 11:02 [facility] bessie
--- NOTE | 2023-02-28 11:02 | ER ---
Nurse's Notes [facility] Name: Patito Maher Age: 77 yrs Sex: Female : 1945 Arrival Date: 02/28/2023 Time: 08:59 Bed 5 Private MD: Diagnosis: Enteritis Presentation: 02/28 09:00 Chief complaint: EMS states: PATIENT WITH ABDOMINAL PAIN STARTED AT 0400 WITH NAUSEA. db DENIES VOMITING. DENIES DIARRHEA. BP 80/60 FOR EMS. GIVEN 100 ML LR. BP 120/80 FOR EMS UPON ARRIVAL. Coronavirus screen: Vaccine status: Patient reports receiving the 2nd dose of the covid vaccine. Client denies travel out of the [place] in the last 14 days. At this time, the client does not indicate any symptoms associated with coronavirus-19. Ebola Screen: Patient negative for fever greater than or equal to 101.5 degrees Fahrenheit, and additional compatible Ebola Virus Disease symptoms Patient denies exposure to infectious person. Patient denies travel to an Ebola-affected area in the 21 days before illness onset. No symptoms or risks identified at this time. Initial Sepsis Screen: Does the patient meet any 2 criteria? No. Patient's initial sepsis screen is negative. Does the patient have a suspected source of infection? No. Patient's initial sepsis screen is negative. Risk Assessment: Do you want to hurt yourself or someone else? Patient reports no desire to harm self or others. Onset of symptoms was February 28, 2023. 09:00 Method Of Arrival: EMS: [facility] db 09:00 Acuity: CAROLEE 3 db Triage Assessment: 09:12 General: Appears in no apparent distress. comfortable, Behavior is calm, cooperative. db Pain: Complains of pain in abdomen. GI: Abdomen is non-distended. 09:14 GI: Reports lower abdominal pain, nausea, Patient currently denies diarrhea, vomiting. db Historical: - Allergies: 09:12 tramadol; db - PMHx: 09:12 Chronic obstructive lung disease; db - Immunization history:: Adult Immunizations unknown. - Social history:: Smoking status: Patient reports the use of cigarette tobacco products, denies chronic smoking, but will smoke occasionally. Screenin:31 [facility] ED Fall Risk Assessment (Adult) History of falling in the last 3 months, db including since admission No falls in past 3 months (0 pts) Score/Fall Risk Level 0 - 2 = Low Risk Oriented to surroundings, Maintained a safe environment. Abuse screen: Denies threats or abuse. Denies injuries from another. Nutritional screening: No deficits noted. Tuberculosis screening: No symptoms or risk factors identified. Assessment: 09:13 Reassessment: Reassessment: SEE TRIAGE FOR INITIAL ASSESSMENT. db 12:05 Reassessment: Patient appears in no apparent distress at this time. Patient and/or db family updated on plan of care and expected duration. Pain level reassessed. Patient is alert, oriented x 3, equal unlabored respirations, skin warm/dry/pink. PATIENT AMBULATORY TO RESTROOM. General: Appears in no apparent distress. comfortable, Behavior is calm, cooperative. Neuro: Level of Consciousness is awake, alert, obeys commands, Oriented to person, place, time, situation. 13:00 Reassessment: Patient appears in no apparent distress at this time. Patient and/or db family updated on plan of care and expected duration. Pain level reassessed. Patient is alert, oriented x 3, equal unlabored respirations, skin warm/dry/pink. 14:15 Reassessment: REPORT GIVEN TO JAQUAN BLANCO. Reassessment: Patient appears in no apparent db distress at this time. Patient and/or family updated on plan of care and expected duration. Pain level reassessed. Patient is alert, oriented x 3, equal unlabored respirations, skin warm/dry/pink. General: Appears in no apparent distress. comfortable, Behavior is calm, cooperative. 14:17 GI: Bowel sounds Abd is soft Abdomen is tender to palpation in right lower quadrant and db left lower quadrant. Vital Signs: 09:00 BP 151 / 79; Pulse 65; Resp 18; Temp 98.9; Pulse Ox 98% on R/A; Weight 72.57 kg; Height db 5 ft. 2 in. ; 10:08 BP 138 / 71; Pulse 68; Resp 18; Pulse Ox 97% on 2 lpm NC; db 14:00 BP 143 / 92; Pulse 75; Resp 18; Pulse Ox 96% on 2 lpm NC; db 09:00 Body Mass Index 29.26 (72.57 kg, 157.48 cm) db ED Course: 09:04 Patient arrived in ED. eb 09:04 [facility] 7 09:04 Yfn Kolb MD is Attending Physician. jh7 09:09 Tiffany Klein, JAQUAN is Primary Nurse. db 09:12 Triage completed. db 09:12 Arm band placed on Patient placed in an exam room. db 09:13 Maintain EMS IV. Dressing intact. Good blood return noted. Site clean \T\ dry. Gauge \T\ db site: 18 G LAC. 09:57 CT Abd/Pelvis - IV Contrast Only In Process Unspecified. EDNC 11:01 Mercedes Suarez MD is Hospitalizing Provider. 7 12:31 Urinalysis w/ reflexes Sent. db 14:16 Patient has correct armband on for positive identification. Bed in low position. Call db light in reach. Side rails up X 1. Provided Education on: ADMISSION. Client placed on continuous cardiac and pulse oximetry monitoring. NIBP monitoring applied. Warm blanket given. 14:16 No provider procedures requiring assistance completed. Patient admitted, IV remains in db place. Administered Medications: 09:25 Drug: NS 0.9% IV 1000 ml IV at 1 bolus Per protocol; 1000 mL bolus Route: IV; Rate: 1 db bolus; Site: left antecubital; 09:25 Drug: Ondansetron IVP 4 mg IVP once; over 2 minutes Route: IVP; Site: left antecubital; db 09:25 Drug: morphine IVP or IV 4 mg IVP once over 4 mins Route: IVP; Infused Over: 4 mins; db Site: left antecubital; 10:14 Drug: HYDROmorphone IVP 0.5 mg IVP once Route: IVP; Site: left antecubital; db 13:47 Follow up: Response: No adverse reaction db 11:25 Drug: metroNIDAZOLE IVPB 500 mg 100 ml IVPB at 200 ml/hr once over 30 mins Volume: 100 db ml; Route: IVPB; Rate: 200 ml/hr; Infused Over: 30 mins; Site: left antecubital; 12:08 Follow up: Response: No adverse reaction; IV Status: Completed infusion; IV Intake: db 100ml 12:08 Drug: Ciprofloxacin IVPB 400 mg 200 ml IVPB once over 60 mins Volume: 200 ml; Route: db IVPB; Infused Over: 60 mins; Site: left antecubital; Medication: 14:16 VIS not applicable for this client. db Intake: 12:08 IV: 100ml; Total: 100ml. db Outcome: 11:02 Decision to Hospitalize by Provider. patricia 14:16 Admitted to ER Hold. Please see [facility] for further documentation. db 14:16 Condition: stable 14:16 Instructed on the need for admit, 14:21 Patient left the ED. db Signatures: Dispatcher [employer] EDMS Elizabeth Shen Jennifer, OVERHEAD CRANE TECHNICIAN OVERHEAD CRANE TECHNICIAN 7 Tiffany Klein, RN RN db Corrections: (The following items were deleted from the chart) 09:31 09:13 Reassessment: db db 14:17 10:08 BP 138 / 71; Pulse 68bpm; Resp 18bpm; Pulse Ox 97% RA; db db
[2023-02-28] MEDS ORDERED: METRONIDAZOLE 500mg IVPB 500 MG/100 ML BAG IV ONE (11:23)
--- NOTE | 2023-02-28 11:23 | P.HP ---
Certification for Inpatient Patient admitted to: Inpatient With expected LOS: <2 Midnights Patient will require the following post-hospital care: None Practitioner: I am a practitioner with admitting privileges, knowledge of patient current condition, hospital course, and medical plan of care. Services: Services provided to patient in accordance with Admission requirements found in Title 42 Section 412.3 of the Code of Federal Regulations <Trixie Geller - Last Filed: 02/28/23 12:39> Patient History Date of Service: 02/28/23 Primary Care Provider: Dr Mohamud Reason for admission: adominal pain History of Present Illness: 77-year-old female with a past medical history of hypertension, COPD, hyperlip idemia, emergency room with abdominal pain. She reports abdominal pain started this this morning around 04:00 AM. She reports abdominal pain is bilateral lower quadrants, she denies fever, chills, vomiting, diarrhea. Reports fatigue, poor p.o. intake. Abdominal pain. She thinks it is related to eating [place] food yesterday. She reports last BM yesterday. She reports history of COPD, not currently smoking, no home O2. She lives with daughter, independent prior. No reported recent falls. ED evaluation EKG 9 Rate is 69 beats/min. Rhythm is regular. QRS [place] is Normal. [place] interval is normal at130 msec. QRS interval is normal at 82 msec. QT interval is normal at 426 msec. No Q waves. T waves are Normal. Clinical impression: NSR w/ Non-specific ST/T Changes. Plan to admit for abdominal pain, enteritis, COPD stable. Patient was treated with IV Zosyn, Dilaudid 0.5, Flagyl IV. Laboratory evaluation mild leukocytosis 12.60, left shift 90.3, BUN 20 creatinine normal at 0.79, estimated GFR 77, glucose 186, UA pending, CT of the abdomen pelvis MPRESSION: Long segments of inflamed mid to distal small bowel with mild fluid distention proximally, with gradual transition to distal to terminal ileum nondistention with persistent wall thickening and inflammation. Trace free pelvic fluid. Findings raise concern for infectious or inflammatory enteritis, including but not limited to inflammatory bowel disease.Mild colonic diverticulosis. - Past Medical/Surgical History Diabetic: No -: COPD -: Hypertension -: Hyperlipidemia - Social History Smoking Status: Former smoker Alcohol use: No CD- Drugs: No Caffeine use: Yes Place of Residence: Home <Trixie Geller - Last Filed: 02/28/23 12:39> Date of Service: 02/28/23 <PrabhaMercedes calvo Zuleika - Last Filed: 02/28/23 13:41> Allergies No Known Allergies Allergy (Unverified 08/17/21 20:16) Home Medications: Albuterol Sulfate [Proair Hfa] 2 puff PO Q4H PRN 08/17/21 Citalopram Hydrobromide [Citalopram HBr] 1 tab PO DAILY 08/17/21 Hydrocodone Bit/Acetaminophen [[place] 7.5-325 Tablet] 1 tab PO BID PRN 08/17/21 Ipratropium/Albuterol Sulfate [Iprat-Albut 0.5-3(2.5) mg/3 ml] 1 vial.neb JORDAN Q6H 08/17/21 Albuterol Neb [Proventil 0.083% Neb Soln] 2.5 mg NEB [id number] #60 amp 08/19/21 Ipratropium Neb [Atrovent*] 0.5 mg NEB [id number] #60 amp 08/19/21 levoFLOXacin [Levaquin*] 750 mg PO DAILY #5 tab 08/19/21 predniSONE [Prednisone*] 20 mg PO BID #11 tab 08/19/21 Review of Systems per HPI <Trixie Geller - Last Filed: 02/28/23 12:39> Physical Examination - Physical Exam General: Alert, In no apparent distress, Oriented x3 HEENT: Atraumatic, Normocephalic Neck: Supple, 2+ carotid pulse no bruit Respiratory: Normal air movement Cardiovascular: No edema, Normal pulses, Regular rate/rhythm Capillary refill: <2 Seconds Gastrointestinal: Tenderness (RLQ, LLQ no rebound ) Musculoskeletal: No clubbing, No swelling Integumentary: No rashes, No breakdown Neurological: Normal speech, Normal tone - Studies Laboratory Data (last 24 hrs) 02/28/23 02/28/23 09:18 09:18 WBC 12.60 H Hgb 14.9 Hct 45.3 H Plt Count 299 Sodium 139 Potassium 4.5 BUN 20 H Creatinine 0.79 Glucose 186 H Total Bilirubin 0.6 AST 16 ALT 28 Alkaline Phosphatase 76 Lipase 17 <Trixie Geller - Last Filed: 02/28/23 12:39> - Studies Laboratory Data (last 24 hrs) 02/28/23 02/28/23 09:18 09:18 WBC 12.60 H Hgb 14.9 Hct 45.3 H Plt Count 299 Sodium 139 Potassium 4.5 BUN 20 H Creatinine 0.79 Glucose 186 H Total Bilirubin 0.6 AST 16 ALT 28 Alkaline Phosphatase 76 Lipase 17 <Mercedes Suarez - Last Filed: 02/28/23 13:41> Assessment and Plan - Plan Assessment plan Abdominal pain secondary to enteritis Enteritis mild leukocytosis WBCs 8 12.60, left shift 90.3, trend WBCs, Keep n.p.o. except ice chips, IV fluids, IV Zosyn, as needed antiemetics, as needed analgesics She reports abdominal pain started this this morning around 04:00 AM. She reports abdominal pain is bilateral lower quadrants, she denies fever, chills, vomiting, diarrhea. She thinks it is related to eating [place] food yesterday. She reports last BM yesterday. Patient was treated with IV Zosyn, Dilaudid 0.5, Flagyl IV. Laboratory evaluation mild leukocytosis 12.60, left shift 90.3, BUN 20 creatinine normal at 0.79, estimated GFR 77, glucose 186, UA pending, ED CT of the abdomen pelvis MPRESSION: Long segments of inflamed mid to distal small bowel with mild fluid distention proximally, with gradual transition to distal to terminal ileum nondistention with persistent wall thickening and inflammation. Trace free pelvic fluid. Findings raise concern for infectious or inflammatory enteritis, including but not limited to inflammatory bowel disease.Mild colonic diverticulosis. History of COPD hyperlipidemia She reports history of COPD, not currently smoking, no home O2. ED evaluation EKG 9 Rate is 69 beats/min. Rhythm is regular. QRS [place] is Normal. [place] interval is normal at130 msec. QRS interval is normal at 82 msec. QT interval is normal at 426 msec. No Q waves. T waves are Normal. Clinical impression: NSR w/ Non-specific ST/T Changes. Resume appropriate home meds Full code Diet n.p.o. except ice chips DVT Lovenox Disposition she lives with daughter, independent prior. No reported recent falls. Discharge Plan: Home Plan to discharge in: 48 Hours - Advance Directives Does patient have a Living Will: No Does patient have a Durable POA for Healthcare: No - Code Status/Comfort Care Code Status: Full Code Critical Care: No Time Spent Managing Pts Care (In Minutes): 55 <Trixie Geller - Last Filed: 02/28/23 12:39> - Plan Pt seen and examined. I agree with the note by the POLE PEELING MACHINE OPERATOR. Pt is a 77 yo female with past medical history of hypertension, COPD, and hyperlipidemia who presents with abdominal pain. The abdominal pain started around 04:00 AM and progressively worsened. On admission, lab studies show WBC 12.6, K 4.5, Cr 0.[address] abd shows evidence of enteritis and 3mm right renal calculi. At bedside, pt is in NAD A/P: Sepsis 2/2 Enteritis: Per CT abd. Will continue iv zosyn and follow up blood cx. WBC is 12.6. Lactate is 1.7. 3mm right rnal calculi: Will strain urine. Continue IVF and flomax. Htn: continue home med Hx of COPD: Stable. Not in exacerbation. HLD: statin DVT ppx: SCD Code: full <Mercedes Suarez - Last Filed: 02/28/23 13:41>
[2023-02-28] MEDS ORDERED: CIPROFLOXACIN 400mg IV 400 MG/200 ML BAG IV ONE (11:24)
[2023-02-28] MEDS ORDERED: ALBUTEROL 2.5 MG/3 ML NEB SOL NEB PRN (11:25)
[2023-02-28] MEDS ORDERED: NA CHLORIDE 0.9% 1,000 ML IV SCH (12:00)
[2023-02-28 12:44] LABS: Calcium Oxalate Crystals- Ur Few /HPF (None Seen); Specific Gravity > 1.030 (1.005-1.030); Urine Bacteria None Seen /HPF (<20); Urine Bilirubin NEGATIVE (Negative); Urine Blood Negative (Negative); Urine Clarity Clear (Clear); Urine Color Light-Yellow (Yellow); Urine Glucose NEGATIVE (Negative); Urine Mucus Slight /HPF (None Seen); Urine Protein NEGATIVE (Negative); Urine RBC <5 /HPF (None Seen); Urine Urobilinogen Normal (Normal); Urine pH 6.5 (5.0-7.0)
[2023-02-28] MEDS ORDERED: NA CHLORIDE 0.9% 100 ML ONE (13:56)
[2023-02-28] MEDS ORDERED: PIPERACIL/TAZO 3.375 GM VIAL IV ONE (13:56)
[2023-02-28] MEDS: PIPER TAZO 3.375 GM in NA CHLORIDE 0.9% 100 ML IV SCH ×2 (14:00→21:36)
[2023-02-28] MEDS: MORPHINE 4 MG/ML SYR IV PRN (14:00)
[2023-02-28] MEDS: IPRATROPIUM BROM 0.5MG/2.5ML NEB SCH ×2 (14:10→20:05)
[2023-02-28 14:33] VITALS: BMI 29.2
[2023-02-28] MEDS ORDERED: PIPER TAZO 3.375 GM in NA CHLORIDE 0.9% 100 ML IV SCH (17:00)
[2023-02-28] MEDS: HYDROMORPHONE HCL 0.5 MG/0.5 ML INJ IV PRN (17:36)
[2023-02-28] MEDS: ONDANSETRON 4 MG/2 ML VIAL IV PRN (17:36)
[2023-03-01] MEDS: HYDROMORPHONE HCL 0.5 MG/0.5 ML INJ IV PRN ×2 (00:54→04:49)
[2023-03-01] MEDS: ONDANSETRON 4 MG/2 ML VIAL IV PRN (00:54)
[2023-03-01] MEDS: IPRATROPIUM BROM 0.5MG/2.5ML NEB SCH ×4 (01:46→21:03)
[2023-03-01] MEDS: PIPER TAZO 3.375 GM in NA CHLORIDE 0.9% 100 ML IV SCH ×3 (04:49→19:32)
[2023-03-01 06:42] LABS: Absolute Lymphocytes (CBC) 1.3 K/uL (0.7-4.9); Hematocrit 38.7 % (36.0-45.0); Lymphocytes % 12.8 % (15.3-44.8); MCV 91.3 fL (80-100); MPV 6.9 fL (7.6-11.3); Platelets 260 thou/uL (152-406); RBC Red Blood Cell Count 4.24 M/uL (3.86-4.86)
[2023-03-01 06:58] LABS: Magnesium 1.7 mg/dL (1.6-2.4); Potassium 3.7 mEq/L (3.5-5.1)
[2023-03-01] MEDS: MORPHINE 4 MG/ML SYR IV PRN (08:05)
--- NOTE | 2023-03-01 09:13 | P.PN ---
Subjective Date of Service: 03/01/23 Primary Care Provider: Dr Mohamud Chief Complaint: adominal pain plan to advance diet today, abdominal pain relieved with prn analgesics, no reported nausea vomiting - Physical Exam General: Alert, In no apparent distress, Oriented x3 HEENT: Atraumatic, Normocephalic Neck: Supple, 2+ carotid pulse no bruit Respiratory: Normal air movement, inspiratory wheezes Cardiovascular: No edema, Normal pulses, Regular rate/rhythm Capillary refill: <2 Seconds Gastrointestinal: Tenderness (RLQ, LLQ mild tenderness) Musculoskeletal: No clubbing, No swelling Integumentary: No rashes, No breakdown Neurological: Normal speech, Normal tone Review of Systems per HPI Physical Examination - Vital Signs Temperature: 98.3 F Blood Pressure: 140/86 Pulse: 68 Respirations: 17 Pulse Ox (%): 97 - Studies Laboratory Data (last 24 hrs) 02/28/23 02/28/23 09:18 09:18 WBC 12.60 H Hgb 14.9 Hct 45.3 H Plt Count 299 Sodium 139 Potassium 4.5 BUN 20 H Creatinine 0.79 Glucose 186 H Total Bilirubin 0.6 AST 16 ALT 28 Alkaline Phosphatase 76 Lipase 17 Assessment And Plan - Plan Assessment plan Abdominal pain secondary to enteritis Enteritis mild leukocytosis WBCs 8 12.60, left shift 90.3, trend WBCs,->10.30 UA neg UTI Keep n.p.o. except ice chips, IV fluids, IV Zosyn, as needed antiemetics, as needed analgesics She reports abdominal pain started this this morning around 04:00 AM. She reports abdominal pain is bilateral lower quadrants, she denies fever, chills, vomiting, diarrhea. She thinks it is related to eating [place] food yesterday. She reports last BM yesterday. Patient was treated with IV Zosyn, Dilaudid 0.5, Flagyl IV. Laboratory evaluation mild leukocytosis 12.60, left shift 90.3, BUN 20 creatinine normal at 0.79, estimated GFR 77, glucose 186, UA pending, ED CT of the abdomen pelvis MPRESSION: Long segments of inflamed mid to distal small bowel with mild fluid distention proximally, with gradual transition to distal to terminal ileum nondistention with persistent wall thickening and inflammation. Trace free pelvic fluid. Findings raise concern for infectious or inflammatory enteritis, including but not limited to inflammatory bowel disease.Mild colonic diverticulosis. 03/01- KUB FINDINGS: Mildly prominent and thickened small bowel loop is seen in the lower abdomen anteriorly, likely related to localize small bowel inflammation/enteritis. No bowel obstruction. No free intraperitoneal air. No suspicious calcifications. Moderate stool is present in the right colon. tolerated advancing diet, Constipation Daily stool softners added for constipation COPD exacerbation IV steroids, nebs added hyperlipidemia She reports history of COPD, not currently smoking, no home O2. ED evaluation EKG 9 Rate is 69 beats/min. Rhythm is regular. QRS [place] is Normal. [place] interval is normal at130 msec. QRS interval is normal at 82 msec. QT interval is normal at 426 msec. No Q waves. T waves are Normal. Clinical impression: NSR w/ Non-specific ST/T Changes. Resume appropriate home meds Full code Diet adv as tolerated DVT Lovenox Disposition she lives with daughter, independent prior. No reported recent falls.
--- NOTE | 2023-03-01 10:03 | RAD REPORT ---
EXAM DESCRIPTION: RAD - Abdomen 1 View (KUB) - 03/01/2023 9:45 am CLINICAL HISTORY: eval abd pain Pain COMPARISON: Abdomen 1 View (KUB) dated 03/16/2019; Abdomen Pelvis W Contrast dated 02/28/2023 FINDINGS: Mildly prominent and thickened small bowel loop is seen in the lower abdomen anteriorly, l ikely related to localize small bowel inflammation/enteritis. No bowel obstruction. No free intraperi toneal air. No suspicious calcifications. Moderate stool is present in the right colon.
[2023-03-01] MEDS ORDERED: SENOSIDES 8.6 MG TAB PO PRN (10:07)
[2023-03-01] MEDS ORDERED: KETOROLAC 30 MG/ML INJ IV ONE (10:30)
--- NOTE | 2023-03-01 12:23 | EKG ---
Test Date: 2023-02-28 Test Time: 09:39:36 Facility Rehab Director: MICAELA MEASUREMENT RESULTS: Intervals: Rate: 69 [place]: 130 QRSD: 82 QT: 426 QTc: 456 [place]: P: 93 [place]: 130 QRS: -20 T: 32 INTERPRETIVE STATEMENTS: Normal sinus rhythm Cannot rule out Anterior infarct, age undetermined Abnormal ECG Compared to ECG 08/17/2021 12:19:10 No significant changes Electronically Signed On 03-01-23 12:19:50 MEAT WASHER by Dylan Clayton
[2023-03-01] MEDS: METHYLPREDNISOLONE 125 MG INJ IV SCH (16:53)
[2023-03-02] MEDS: METHYLPREDNISOLONE 125 MG INJ IV SCH ×2 (00:27→07:54)
[2023-03-02] MEDS: IPRATROPIUM BROM 0.5MG/2.5ML NEB SCH ×2 (01:00→09:14)
[2023-03-02] MEDS: ACETAMINOPHEN 325 MG TABLET PO PRN ×2 (01:07→07:53)
[2023-03-02] MEDS: PIPER TAZO 3.375 GM in NA CHLORIDE 0.9% 100 ML IV SCH (04:41)
[2023-03-02 06:50] LABS: Absolute Lymphocytes (CBC) 0.4 K/uL (0.7-4.9); Hematocrit 39.1 % (36.0-45.0); MCV 91.5 fL (80-100); MPV 7.4 fL (7.6-11.3); Platelets 242 thou/uL (152-406); RBC Red Blood Cell Count 4.27 M/uL (3.86-4.86)
[2023-03-02 07:04] VITALS: BP 127/72; TEMP 97.1
[2023-03-02 07:05] LABS: Potassium 4.2 mEq/L (3.5-5.1)
--- NOTE | 2023-03-02 07:35 | P.DS ---
Admission Date: 02/28/23 Discharge Date: 03/02/23 Primary Care Provider: Dr Mohamud Disposition: ROUTINE DISCHARGE Discharge Condition: GOOD Reason for Admission: adominal pain Brief History of Present Illness: 77-year-old female with a past medical history of hypertension, COPD, hyperlipidemia, emergency room with abdominal pain. She reports abdominal pain started this this morning around 04:00 AM. She reports abdominal pain is bilateral lower quadrants, she denies fever, chills, vomiting, diarrhea. Reports fatigue, poor p.o. intake. Abdominal pain. She thinks it is related to eating [place] food yesterday. She reports last BM yesterday. She reports history of COPD, not currently smoking, no home O2. She lives with daughter, independent prior. No reported recent falls. ED evaluation EKG 9 Rate is 69 beats/min. Rhythm is regular. QRS [place] is Normal. [place] interval is normal at130 msec. QRS interval is normal at 82 msec. QT interval is normal at 426 msec. No Q waves. T waves are Normal. Clinical impression: NSR w/ Non-specific ST/T Changes. Plan to admit for abdominal pain, enteritis, COPD stable. Patient was treated with IV Zosyn, Dilaudid 0.5, Flagyl IV. Laboratory evaluation mild leukocytosis 12.60, left shift 90.3, BUN 20 creatinine normal at 0.79, estimated GFR 77, glucose 186, UA pending, CT of the abdomen pelvis MPRESSION: Long segments of inflamed mid to distal small bowel with mild fluid distention proximally, with gradual transition to distal to terminal ileum nondistention with persistent wall thickening and inflammation. Trace free pelvic fluid. Findings raise concern for infectious or inflammatory enteritis, including but not limited to inflammatory bowel disease.Mild colonic diverticulosis. - Physical Exam General: Alert, In no apparent distress, Oriented x3 HEENT: Atraumatic, Normocephalic Neck: Supple, 2+ carotid pulse no bruit Respiratory: Normal air movement, inspiratory wheezes Cardiovascular: No edema, Normal pulses, Regular rate/rhythm Capillary refill: <2 Seconds Gastrointestinal: Normoactive bowel sounds, no abdominal tenderness Musculoskeletal: No clubbing, No swelling Integumentary: No rashes, No breakdown Neurological: Normal speech, Normal tone Hospital Course: Patient is a 77-year-old female who was admitted to the hospital with enteritis. Patient's symptoms have improved on IV antibiotics, as needed antiemetics, as needed pain analgesics. Patient is no longer having any significant diarrhea. Diet was advanced as tolerating, tolerating diet. Additionally had some wheezing COPD exacerbation. Treated with steroids, nebulizers. Breathing improved on treatment. Patient is clinically stable and at this time she is stable for discharge home. Assessment, Abdominal pain Enteritis Constipation She will follow-up with gastroenterology for endoscopy as well as a follow-up with her PCP in 1 to 2 weeks. Abdominal x-ray showed constipation and enteritis. Prescription for Cipro and Flagyl take as instructed, prescription for probiotic given to patient. COPD exacerbation Continue home inhalers as previously instructed Discharge home on steroids wean as indicated. -Please call Dr. Kelly at [phone] if any questions regarding hospital stay -Please call nursing station at [phone] if any nursing or medication questions -Return to the emergency room if symptoms worsen Diet: ADA, low sodium Vital Signs/Physical Exam: Temp Pulse Resp BP Pulse Ox 97.1 F 67 18 127/72 93 03/02/23 07:03 03/02/23 07:03 03/02/23 07:03 03/02/23 07:03 03/02/23 07:03 Laboratory Data at Discharge: WBC 7.30 thou/uL (4.3-10.9) 03/02/23 06:05 Hgb 12.7 g/dL (12.0-15.0) 03/02/23 06:05 Hct 39.1 % (36.0-45.0) 03/02/23 06:05 Plt Count 242 thou/uL (152-406) 03/02/23 06:05 Sodium 140 mEq/L (136-145) 03/02/23 06:05 Potassium 4.2 mEq/L (3.5-5.1) D 03/02/23 06:05 BUN 18 mg/dL (7-18) 03/02/23 06:05 Creatinine 0.52 mg/dL (0.55-1.02) L 03/02/23 06:05 Glucose 146 mg/dL (74-106) H 03/02/23 06:05 Magnesium 2.0 mg/dL (1.6-2.4) 03/02/23 06:05 Total Bilirubin 0.6 mg/dL (0.2-1.0) 02/28/23 09:18 AST 16 U/L (15-37) 02/28/23 09:18 ALT 28 U/L (13-56) 02/28/23 09:18 Alkaline Phosphatase 76 U/L (45-117) 02/28/23 09:18 Lipase 17 U/L (13-75) 02/28/23 09:18 Home Medications: Albuterol Sulfate [Proair Hfa] 2 puff PO Q4H PRN 08/17/21 Citalopram Hydrobromide [Citalopram HBr] 2 tab PO DAILY 08/17/21 Hydrocodone Bit/Acetaminophen [[place] 7.5-325 Tablet] 1 tab PO BID PRN 08/17/21 Albuterol Neb [Proventil 0.083% Neb Soln] 2.5 mg NEB [id number] PRN 02/28/23 Trazodone [Desyrel*] 50 mg PO BEDTIME 02/28/23 Ciprofloxacin HCl [Cipro 500 MG Tablet] 500 mg PO BID 5 Days #10 tab 03/02/23 Lactobacillus Acidophilus [Acidophilus Lactobacilli] 1 each PO BID 5 Days #10 tab 03/02/23 Senosides [Senokot*] 8.6 mg PO DAILY PRN tab 03/02/23 metroNIDAZOLE [Flagyl] 375 mg PO Q8H 5 Days #15 mg 03/02/23 New Medications: Lactobacillus Acidophilus [Acidophilus Lactobacilli] 1 each PO BID 5 Days #10 tab Ciprofloxacin HCl [Cipro 500 MG Tablet] 500 mg PO BID 5 Days #10 tab metroNIDAZOLE [Flagyl] 375 mg PO Q8H 5 Days #15 mg Physician Discharge Instructions: Patient is a 77-year-old female who was admitted to the hospital with enteritis. Patient's symptoms have improved on IV antibiotics, as needed antiemetics, as needed pain analgesics. Patient is no longer having any significant diarrhea. Additionally had some wheezing COPD exacerbation. Treated with steroids, nebulizers. Breathing improved on treatment. Patient is clinically stable and at this time she is stable for discharge home. Assessment, Abdominal pain Enteritis Constipation COPD exacerbation She will follow-up with gastroenterology for endoscopy as well as a follow-up with her PCP in 1 to 2 weeks. Abdominal x-ray showed constipation and enteritis. take stool softeners daily for constipation COPD exacerbation Continue home inhalers as previously instructed Discharge home on steroids wean as indicated. she has prednisone at home -Please call Dr. Kelly at [phone] if any questions regarding hospital stay -Please call nursing station at [phone] if any nursing or medication questions -Return to the emergency room if symptoms worsen Diet: ADA, low sodium Activity: Fall precautions DME: Date Ordered: Name of Company: [employer] Services Needed: None Date or Referral: IMMUNIZATION Influenza Vaccine Indicated: Influenza Vaccine Given: Date Given: Pneumonia Vaccine Indicated: Pneumonia Vaccine Given: Date Given: Followup: Howard Rogers MD [ACTIVE - CAN ADMIT] - Fly Mohamud DO [Primary Care Provider] - 1-2 Weeks
[2023-03-02 10:13] VITALS: O2SAT 91
== END 2023-03-02 11:30 | disposition home or self-care (01) | DRG 872 ==
LOC: ER 08:59 → ERHOLD 11:33 → 4TH 13:59
PROVIDERS: ADMIT Hospitalist; ATTEND Hospitalist
DX: A41.9 Sepsis, unspecified organism (principal); J44.1 Chronic obstructive pulmonary disease with (acute) exacerbation; K52.9 Noninfective gastroenteritis and colitis, unspecified; E78.5 Hyperlipidemia, unspecified; I10 Essential (primary) hypertension; K59.00 Constipation, unspecified; K57.30 Diverticulosis of large intestine without perforation or abscess without bleeding; F17.210 Nicotine dependence, cigarettes, uncomplicated; Z88.5 Allergy status to narcotic agent; Z79.52 Long term (current) use of systemic steroids; Z79.899 Other long term (current) drug therapy
CPT/HCPCS: 36415; 74018; 74177; 80048; 80053; 81001; 83605; 83690; 83735; 85025; 93005; 94760; 96365; 96375; 99285; J0744; J1170; J2405; J2543; J2930; J7030; J7644; Q9967

== ENCOUNTER 2023-05-07 18:57 | Inpatient (IN) | payer OTHER ==
[2023-05-07] MEDS ORDERED: IPRATROPIUM BROM 0.5MG/2.5ML ONE (19:46)
[2023-05-07] MEDS ORDERED: ALBUTEROL 2.5 MG/3 ML NEB SOL ONE (19:46)
[2023-05-07] MEDS ORDERED: METHYLPREDNISOLONE 125 MG INJ ONE (19:46)
[2023-05-07 20:01] LABS: Absolute Basophils 0.1 K/uL (0-0.5); Absolute Lymphocytes (CBC) 0.6 K/uL (0.7-4.9); Absolute Monocytes 1.4 K/uL (0.1-1.3); Basophils % 0.6 % (0-1.3); Hematocrit 42.2 % (36.0-45.0); Lymphocytes % 2.4 % (15.3-44.8); MCH 30.3 pg (27.0-35.0); MCHC 33.3 g/dL (32.0-36.0); MPV 7.4 fL (7.6-11.3); Monocytes % 5.4 % (3.3-12.3); Neutrophils % 91.6 % (41.7-73.7); Platelets 289 thou/uL (152-406); RBC Red Blood Cell Count 4.64 M/uL (3.86-4.86); Red Cell Distribution Width 15.8 % (12.1-15.2)
[2023-05-07 20:15] LABS: Albumin 3.1 g/dL (3.4-5.0); Albumin/Globulin Ratio 0.7 (1.1-1.8); Anion Gap 9.6 mEq/L (5.0-15.0); Bilirubin Direct 0.4 mg/dL (0-0.2); Bilirubin Indirect, Calculated 0.8 mg/dL (0.2-0.8); Bilirubin Total 1.2 mg/dL (0.2-1.0); Globulin 4.6 g/dL (2.3-3.5); Magnesium 1.9 mg/dL (1.6-2.4); Potassium 3.6 mEq/L (3.5-5.1); Protein, Total 7.7 g/dL (6.4-8.2); Troponin High Sensitivity 13.9 pg/mL (<58.9)
--- NOTE | 2023-05-07 20:30 | RAD REPORT ---
[facility] 7[facility]44 [facility] CLINICAL HISTORY: COPD COMPARISON: Abdomen 1 View (KUB) dated 03/01/2023; Chest Single View dated 08/17/2021; Abdomen 1 View ( KUB) dated 03/16/2019; Abdomen Pelvis W Contrast dated 02/28/2023 TECHNIQUE: Portable AP view of the chest. FINDINGS: The lungs show no focal consolidation. Mild bibasilar interstitial prominence. No pneumot horax or effusion. The cardiomediastinal contours are unremarkable. IMPRESSION: Mild bibasilar interstitial prominence, nonspecific, could relate to COPD exacerbation o r interstitial pneumonitis.
[2023-05-07 20:47] LABS: Differential Total Cells Count 100; Segmented Neutrophils 87 % (40-80)
[2023-05-07 20:48] LABS: Band Neutrophils 4 % (0-1); Blood Morphology Comment NOT SEEN (NOT SEEN); Lymphocytes 3 % (15-42); Monocytes 6 % (0-10); Platelet Estimate ADEQ
[2023-05-07 20:52] LABS: PT Prothrombin Time 16.5 SECONDS (9.5-12.5); PTT, Activated Partial Thromb 30.1 SECONDS (24.3-36.9); Protime INR 1.52
[2023-05-07] MEDS ORDERED: CEFTRIAXONE 1000 MG/VIAL ONE ×2 (21:04→21:17)
[2023-05-07] MEDS ORDERED: NA CHLORIDE 0.9% 250 ML ONE (21:04)
[2023-05-07] MEDS ORDERED: AZITHROMYCIN 500 MG INJ IVPB ONE (21:04)
[2023-05-07] MEDS ORDERED: NA CHLORIDE 0.9% 100 ML ONE (21:09)
--- NOTE | 2023-05-07 23:00 | ER ---
Nurse's Notes [facility] Name: Patito Maher Age: 77 yrs Sex: Female : 1945 Arrival Date: 05/07/2023 Time: 18:57 Bed 18 Private MD: Diagnosis: COPD/ Chronic obstructive pulmonary disease with (acute) exacerbation;Unspecified bacterial pneumonia Presentation: 05/06 19:18 Chief complaint: Patient states: Pt c/o dyspnea, cough, congestion, COOPER since last ll1 night. No relief with COPD meds. Coronavirus screen: At this time, the client does not indicate any symptoms associated with coronavirus-19. Ebola Screen: No symptoms or risks identified at this time. Initial Sepsis Screen: Does the patient meet any 2 criteria? No. Patient's initial sepsis screen is negative. Does the patient have a suspected source of infection? No. Patient's initial sepsis screen is negative. Risk Assessment: Do you want to hurt yourself or someone else? Patient reports no desire to harm self or others. Onset of symptoms was May 06, 2023. 19:18 Method Of Arrival: Wheelchair ll1 19:18 Acuity: CAROLEE 3 ll1 Triage Assessment: 19:17 General: Appears distressed, Behavior is calm, cooperative. Pain: Denies pain. EENT: No ll1 deficits noted. No signs and/or symptoms were reported regarding the EENT system. Neuro: No deficits noted. Cardiovascular: Denies chest pain. Respiratory: Reports shortness of breath at rest cough that is non-productive, Onset: The symptoms/episode began/occurred yesterday, the patient has moderate shortness of breath. GI: No deficits noted. No signs and/or symptoms were reported involving the gastrointestinal system. : No deficits noted. No signs and/or symptoms were reported regarding the genitourinary system. Historical: - Allergies: 19:16 tramadol; ll1 - Home Meds: 19:16 Trelegy Ellipta inhalation [Active]; Albuterol Inhl [Active]; ll1 - PMHx: 19:16 Chronic obstructive lung disease; ll1 - Immunization history:: Adult Immunizations unknown. - Social history:: Smoking status: Patient/guardian denies using tobacco, Stopped _ months ago 2. - Family history:: not pertinent. Screenin:14 [facility] ED Fall Risk Assessment (Adult) History of falling in the last 3 months, pf1 including since admission No falls in past 3 months (0 pts) Confusion or Disorientation No (0 pts) Intoxicated or Sedated No (0 pts) Impaired Gait No (0 pts) Mobility Assist Device Used No (0 pt) Altered Elimination No (0 pt) Score/Fall Risk Level 0 - 2 = Low Risk Oriented to surroundings, Maintained a safe environment, Educated pt \T\ family on fall prevention, incl call for assistance when getting out of bed, Assessed \T\ reinforced patient's understanding of fall precautions, Provided non-skid footwear, Hourly rounding (assess needs \T\ fall precautionary measures) done, Used ambulatory aids as needed (educated on \T\ assisted with), Used gait belt as appropriate. 19:14 Abuse screen: Denies threats or abuse. Nutritional screening: No deficits noted. pf1 Tuberculosis screening: No symptoms or risk factors identified. Assessment: 19:15 General: Appears in no apparent distress. comfortable, well groomed, well developed, pf1 Behavior is calm, cooperative, appropriate for age, quiet. 19:15 Pain: Complains of pain in headache Pain currently is 2 out of 10 on a pain scale. Pain pf1 began 1 day ago. Neuro: Level of Consciousness is awake, alert, obeys commands, Oriented to person, place, time, situation, Reports headache. Cardiovascular: Reports shortness of breath, Capillary refill < 3 seconds Patient's skin is warm and dry. Respiratory: Airway is patent Respiratory effort is even, labored, Respiratory pattern is tachypnea. GI: No deficits noted. No signs and/or symptoms were reported involving the gastrointestinal system. : No deficits noted. No signs and/or symptoms were reported regarding the genitourinary system. EENT: No deficits noted. No signs and/or symptoms were reported regarding the EENT system. Derm: No deficits noted. No signs and/or symptoms reported regarding the dermatologic system. Musculoskeletal: No deficits noted. No signs and/or symptoms reported regarding the musculoskeletal system. 19:15 Respiratory: Reports shortness of breath cough that is productive, labored breathing pf1 since yesterday. 19:15 Respiratory: Breath sounds with wheezes bilaterally. pf1 19:59 Reassessment: Patient appears in no apparent distress at this time. Patient and/or pf1 family updated on plan of care and expected duration. Pain level reassessed. Patient is alert, oriented x 3, equal unlabored respirations, skin warm/dry/pink. 21:00 Reassessment: Patient appears in no apparent distress at this time. Patient and/or pf1 family updated on plan of care and expected duration. Pain level reassessed. Patient is alert, oriented x 3, equal unlabored respirations, skin warm/dry/pink. Patient states symptoms have improved. 22:00 Reassessment: Patient appears in no apparent distress at this time. Patient and/or pf1 family updated on plan of care and expected duration. Pain level reassessed. Patient is alert, oriented x 3, equal unlabored respirations, skin warm/dry/pink. Patient states feeling better. Patient states symptoms have improved. 23:00 Reassessment: Patient appears in no apparent distress at this time. Patient and/or pf1 family updated on plan of care and expected duration. Pain level reassessed. Patient is alert, oriented x 3, equal unlabored respirations, skin warm/dry/pink. Patient states feeling better. Patient states symptoms have improved. 23:32 Reassessment: faxed report to 2nd floor. pf1 23:33 Reassessment: Cindy on 2nd notified Kimberli of fax. pf1 23:36 Cardiovascular: Rhythm is sinus rhythm. pf1 05/07 00:15 Reassessment: room assignment changed to 205, Notified Kimberli on 2nd floor of pf1 pending catscan. Updated registration of bed assignment change. Patient pending admission. 01:00 Reassessment: Patient appears in no apparent distress at this time. Patient and/or pf1 family updated on plan of care and expected duration. Pain level reassessed. Patient is alert, oriented x 3, equal unlabored respirations, skin warm/dry/pink. Patient states feeling better. Patient states symptoms have improved. Vital Signs: 05/06 19:18 BP 111 / 76; Pulse 109; Resp 22; Temp 98.1(TE); Pulse Ox 88% on R/A; Weight 70.31 kg; ll1 Height 5 ft. 2 in. ; Pain 0/10; 20:00 BP 113 / 84; Pulse 101; Resp 23; Pulse Ox 96% on 2 lpm NC; Pain 2/10; pf1 20:30 BP 120 / 85; Pulse 96; Resp 22; Pulse Ox 93% on 2 lpm NC; pf1 21:30 BP 115 / 80; Pulse 87; Resp 18; Temp 98.4; Pulse Ox 94% on 2 lpm NC; Pain 0/10; pf1 22:30 BP 113 / 76; Pulse 80; Resp 20; Pulse Ox 95% on 2 lpm NC; Pain 0/10; pf1 23:30 BP 110 / 89; Pulse 77; Resp 14; Temp 98; Pulse Ox 94% on 2 lpm NC; Pain 0/10; pf1 05/07 00:30 BP 118 / 72; Pulse 89; Resp 16; Temp 98.1; Pulse Ox 95% on 2 lpm NC; Pain 0/10; pf1 05/06 19:18 Body Mass Index 28.35 (70.31 kg, 157.48 cm) ll1 05/06 19:18 Pain Scale: Adult ll1 20:00 Pain Scale: Adult pf1 21:30 Pain Scale: Adult pf1 22:30 Pain Scale: Adult pf1 23:30 Pain Scale: Adult pf1 05/07 00:30 Pain Scale: Adult pf1 ED Course: 05/06 18:58 Patient arrived in ED. hb 19:02 Dillon Farooq MD is Attending Physician. rt 19:15 Patient has correct armband on for positive identification. Placed in gown. Bed in low pf1 position. Call light in reach. Side rails up X 1. 19:18 Arm band placed on right wrist. ll1 19:19 Triage completed. ll1 19:30 Door closed. Warm blanket given. Pillow given. Verbal reassurance given. pf1 19:40 No provider procedures requiring assistance completed. Inserted saline lock: 22 gauge pf1 in right antecubital area, using aseptic technique. Blood collected. 19:40 Initial lab(s) drawn, by me, sent to lab. pf1 19:46 XRAY Chest (1 view) In Process Unspecified. EDMS 19:46 EKG done, by technical training instructor. reviewed by Dillon Farooq MD. oe 19:48 Basic Metabolic Panel Sent. pf1 19:48 CBC with Diff Sent. pf1 19:48 LFT's Sent. pf1 19:49 Magnesium Sent. pf1 19:49 NT PRO-BNP Sent. pf1 19:49 Troponin HS Sent. pf1 20:13 Anabella Herzog, JAQUAN is Primary Nurse. pf1 20:33 Attending Physician role handed off by Dillon Farooq MD sp4 20:33 Adam Valenzuela MD is Attending Physician. sp4 20:45 Ptt, Activated Sent. pf1 20:45 Protime (+inr) Sent. pf1 20:50 First set of blood cultures drawn by me. oe 20:55 Inserted saline lock: 22 gauge in left forearm, using aseptic technique. Blood oe collected. 21:06 Second set of blood cultures drawn by me. oe 22:58 Jarrod Rogers MD is Hospitalizing Provider. sp4 22:58 Hospitalizing Provider role handed off by Jarrod Rogers MD sp4 22:58 Howard Rogers MD is Hospitalizing Provider. sp4 23:36 Provided Education on: need for admit. pf1 23:36 Patient admitted, IV remains in place. pf1 23:46 Troponin High Sensitivity Sent. pf1 Administered Medications: 19:50 Drug: MethylPrednisoLONE IVP 125 mg IVP once Route: IVP; Site: right antecubital; pf1 20:47 Follow up: Response: No adverse reaction; Marked relief of symptoms pf1 19:56 Drug: DuoNeb Nebulize (3:1) (2.5 mg - 0.5 mg) 3 ml Nebulizer once Route: Nebulizer; pf1 20:47 Follow up: Response: No adverse reaction; Marked relief of symptoms pf1 21:18 Drug: AZITHromycin IVPB 500 mg IVPB once over 1 hrs; (mix in 250 mL NS) Route: IVPB; pf1 Infused Over: 1 hrs; Site: right antecubital; 22:18 Follow up: Response: No adverse reaction; IV Status: Completed infusion; IV Intake: pf1 250ml 21:25 Drug: Rocephin - Rocephin (cefTRIAXone) IVPB 2 grams IVPB once over 30 mins; (mix in pf1 100 mL NS) Route: IVPB; Infused Over: 30 mins; Site: left forearm; 21:55 Follow up: Response: No adverse reaction; Marked relief of symptoms; IV Status: pf1 Completed infusion; IV Intake: 100ml Medication: 23:36 VIS not applicable for this client. pf1 Intake: 21:55 IV: 100ml; Total: 100ml. pf1 22:18 IV: 250ml; Total: 350ml. pf1 Outcome: 22:59 Decision to Hospitalize by Provider. sp4 23:32 Admitted to Med/surg accompanied by tech, via wheelchair, room 204, with oxygen, with pf1 chart, Report called to faxed report to 2nd 23:32 Condition: stable 23:32 Instructed on the need for admit, Demonstrated understanding of instructions, pf1 05/07 01:12 Patient left the ED. pf1 Signatures: Dispatcher [employer] EDMS Apoorva Bermudez, RN RN Suleiman Srivastava Lynsay RN RN ll1 Dillon Farooq MD MD rt Anabella Herzog RN RN pf1 Adam Valenzuela MD MD sp4 Salma Aguila RN RN nj1 Corrections: (The following items were deleted from the chart) 05/06 20:24 19:17 Respiratory: Reports shortness of breath at rest cough that is Onset: The nj1 symptoms/episode began/occurred yesterday, the patient has moderate shortness of breath [facility] 05/07 05:29 00:15 Reassessment: room assignment changed to 205, updating admission, patient in pf1 catscan, pending admission. Notified Kimberli on 2nd floor pf1
--- NOTE | 2023-05-07 23:00 | EDPHYS ---
Physician Documentation [facility] Name: Patito Maher Age: 77 yrs Sex: Female : 1945 Arrival Date: 05/07/2023 Time: 18:57 Bed 18 Private MD: ED Physician Adam Valenzuela HPI: 05/06 20:33 This 77 yrs old Female presents to ER via Wheelchair with complaints of Shortness Of rt Breath. 20:33 Patient with history of COPD presents to the ED with dyspnea, reports a cough since rt last night. Denies chest pain, other acute complaints, symptoms are moderate in severity, no other aggravating or alleviating factors.. Historical: - Allergies: 19:16 tramadol; ll1 - Home Meds: 19:16 Trelegy Ellipta inhalation [Active]; Albuterol Inhl [Active]; ll1 - PMHx: 19:16 Chronic obstructive lung disease; ll1 - Immunization history:: Adult Immunizations unknown. - Social history:: Smoking status: Patient/guardian denies using tobacco, Stopped _ months ago 2. - Family history:: not pertinent. ROS: 20:33 Constitutional: Negative for fever, chills, and weight loss, Cardiovascular: Negative rt for chest pain, palpitations, and edema, Abdomen/GI: Negative for abdominal pain, nausea, vomiting, diarrhea, and constipation, MS/Extremity: Negative for injury and deformity, Skin: Negative for injury, rash, and discoloration, Neuro: Negative for headache, weakness, numbness, tingling, and seizure, 20:33 Respiratory: Positive for cough, shortness of breath, wheezing, Exam: 20:33 Constitutional: This is a well developed, well nourished patient who is awake, alert, rt and in no acute distress. Head/Face: Normocephalic, atraumatic. Chest/axilla: Normal chest wall appearance and motion. Nontender with no deformity. No lesions are appreciated. Cardiovascular: Regular rate and rhythm with a normal S1 and S2. No gallops, murmurs, or rubs. Normal PMI, no JVD. No pulse deficits. Abdomen/GI: Soft, non-tender, with normal bowel sounds. No distension or tympany. No guarding or rebound. No evidence of tenderness throughout. Skin: Warm, dry with normal turgor. Normal color with no rashes, no lesions, and no evidence of cellulitis. MS/ Extremity: Pulses equal, no cyanosis. Neurovascular intact. Full, normal range of motion. Neuro: Awake and alert, GCS 15, oriented to person, place, time, and situation. Cranial nerves II-XII grossly intact. Motor strength 5/5 in all extremities. Sensory grossly intact. Cerebellar exam normal. Normal gait. 20:33 ECG was reviewed by the Attending Physician. 20:33 Respiratory: Wheezes heard on all lung barragan, no respiratory distress, Vital Signs: 19:18 BP 111 / 76; Pulse 109; Resp 22; Temp 98.1(TE); Pulse Ox 88% on R/A; Weight 70.31 kg; ll1 Height 5 ft. 2 in. ; Pain 0/10; 20:00 BP 113 / 84; Pulse 101; Resp 23; Pulse Ox 96% on 2 lpm NC; Pain 2/10; pf1 20:30 BP 120 / 85; Pulse 96; Resp 22; Pulse Ox 93% on 2 lpm NC; pf1 21:30 BP 115 / 80; Pulse 87; Resp 18; Temp 98.4; Pulse Ox 94% on 2 lpm NC; Pain 0/10; pf1 22:30 BP 113 / 76; Pulse 80; Resp 20; Pulse Ox 95% on 2 lpm NC; Pain 0/10; pf1 23:30 BP 110 / 89; Pulse 77; Resp 14; Temp 98; Pulse Ox 94% on 2 lpm NC; Pain 0/10; pf1 05/07 00:30 BP 118 / 72; Pulse 89; Resp 16; Temp 98.1; Pulse Ox 95% on 2 lpm NC; Pain 0/10; pf1 05/06 19:18 Body Mass Index 28.35 (70.31 kg, 157.48 cm) ll1 05/06 19:18 Pain Scale: Adult ll1 20:00 Pain Scale: Adult pf1 21:30 Pain Scale: Adult pf1 22:30 Pain Scale: Adult pf1 23:30 Pain Scale: Adult pf1 05/07 00:30 Pain Scale: Adult pf1 MDM: 05/06 19:15 Patient medically screened. rt 05/07 20:51 ED course: IMPRESSION: Focus of consolidation within the posterior segment left lower sp4 lobe lower lobe, and tree-in-bud nodularity corresponding to infection/inflammation/bronchopneumonia. Bilateral parapelvic renal cysts. 3.6 mm non obstructing lower pole right renal calculus. Atherosclerotic disease of the aorta. No evidence for acute intra-abdominal process. Electronically signed by: Rancho Pappas MD 05/08/2023 01:28 AM CDT. 20:52 Differential diagnosis: Anxiety Reaction asthma, Bronchitis CHF exacerbation, Chronic sp4 Obstructive Pulmonary Disease pneumonia. Antibiotic administration: Given in ER . Data reviewed: vital signs, nurses notes, EMS record, old medical records, lab test result(s), radiologic studies, CT scan. Consideration of Admission/Observation Patient was admitted/placed on observation. Escalation of care including admission/observation considered. Management of patient was discussed with the following: Hospitalist: . 05/06 19:17 Order name: Basic Metabolic Panel; Complete Time: 20:31 rt 05/06 19:17 Order name: CBC with Diff; Complete Time: 22:50 rt 05/06 19:17 Order name: LFT's; Complete Time: 20:31 rt 05/06 19:17 Order name: Magnesium; Complete Time: 20:31 rt 05/06 19:17 Order name: NT PRO-BNP; Complete Time: 20:31 rt 05/06 19:17 Order name: Troponin HS; Complete Time: 20:31 rt 05/06 20:15 Order name: Manual Differential; Complete Time: 22:50 EDMS 05/06 20:36 Order name: Blood Culture Adult (2) rt 05/06 20:36 Order name: Lactate w/ 2H reflex if indic.; Complete Time: 22:50 rt 05/06 20:36 Order name: Protime (+inr); Complete Time: 22:50 rt 05/06 20:36 Order name: Ptt, Activated; Complete Time: 22:50 rt 05/06 21:38 Order name: Glucose, Ancillary Testing; Complete Time: 22:50 EDMS 05/06 23:12 Order name: Basic Metabolic Panel EDMS 05/06 23:12 Order name: Basic Metabolic Panel EDMS 05/06 23:12 Order name: CBC with Automated Diff EDMS 05/06 23:12 Order name: CBC with Automated Diff EDMS 05/06 23:12 Order name: Troponin High Sensitivity EDMS 05/06 23:12 Order name: Sputum Culture EDMS 05/06 19:17 Order name: XRAY Chest (1 view); Complete Time: 20:31 rt 05/06 22:50 Order name: CT Chest Abdomen Pelvis W/O Contrast sp4 05/06 19:17 Order name: EKG; Complete Time: 19:17 rt 05/06 19:17 Order name: Cardiac monitoring; Complete Time: 19:38 rt 05/06 19:17 Order name: EKG - Nurse/Tech; Complete Time: 19:56 rt 05/06 19:17 Order name: IV Saline Lock; Complete Time: 19:48 rt 05/06 19:17 Order name: Labs collected and sent; Complete Time: 19:48 rt 05/06 19:17 Order name: O2 Per Protocol; Complete Time: 19:38 rt 05/06 19:17 Order name: O2 Sat Monitoring; Complete Time: 19:38 rt 05/06 20:36 Order name: Accucheck; Complete Time: 21:26 rt 05/06 20:36 Order name: IV Saline Lock - Large Bore; Complete Time: 20:45 rt 05/06 20:36 Order name: Vital Signs; Complete Time: 21:20 rt EC/15 20:33 Rate is 104 beats/min. Rhythm is regular, Sinus tachycardia with No ectopy, lafb. QRS rt [place] is Normal. MN interval is normal. QRS interval is normal. QT interval is normal. No Q waves. Administered Medications: 19:50 Drug: MethylPrednisoLONE IVP 125 mg IVP once Route: IVP; Site: right antecubital; pf1 20:47 Follow up: Response: No adverse reaction; Marked relief of symptoms pf1 19:56 Drug: DuoNeb Nebulize (3:1) (2.5 mg - 0.5 mg) 3 ml Nebulizer once Route: Nebulizer; pf1 20:47 Follow up: Response: No adverse reaction; Marked relief of symptoms pf1 21:18 Drug: AZITHromycin IVPB 500 mg IVPB once over 1 hrs; (mix in 250 mL NS) Route: IVPB; pf1 Infused Over: 1 hrs; Site: right antecubital; 22:18 Follow up: Response: No adverse reaction; IV Status: Completed infusion; IV Intake: pf1 250ml 21:25 Drug: Rocephin - Rocephin (cefTRIAXone) IVPB 2 grams IVPB once over 30 mins; (mix in pf1 100 mL NS) Route: IVPB; Infused Over: 30 mins; Site: left forearm; 21:55 Follow up: Response: No adverse reaction; Marked relief of symptoms; IV Status: pf1 Completed infusion; IV Intake: 100ml Disposition Summary: 05/07/23 22:59 Hospitalization Ordered Notes: Hospitalization Status: Inpatient Admission sp4 Provider: Howard Rogers sp4 [facility] sp4 Condition: Stable sp4 Problem: new sp4 Symptoms: have improved sp4 Bed/Room Type: Standard sp4 Room Assignment: 204(05/07/23 23:23) cg Diagnosis - COPD/ Chronic obstructive pulmonary disease with (acute) exacerbation sp4 - Unspecified bacterial pneumonia sp4 Forms: - Medication Reconciliation Form sp4 - SBAR form sp4 - Leadership Thank You Letter sp4 Signatures: Dispatcher [employer] Nimo Carlin RN RN cg Rhiannon Earl RN RN ll1 Dillon Farooq MD MD rt Anabella Herzog RN RN pf1 Adam Valenzuela MD MD sp4 Corrections: (The following items were deleted from the chart) 23:23 22:59 sp4 cg
[2023-05-07] MEDS ORDERED: ACETAMINOPHEN 500 MG TAB PO PRN (23:06)
[2023-05-07] MEDS ORDERED: ALBUTEROL 2.5 MG/3 ML NEB SOL NEB PRN (23:06)
--- NOTE | 2023-05-07 23:22 | P.HP ---
Certification for Inpatient Patient admitted to: Inpatient With expected LOS: >2 Midnights Practitioner: I am a practitioner with admitting privileges, knowledge of patient current condition, hospital course, and medical plan of care. Services: Services provided to patient in accordance with Admission requirements found in Title 42 Section 412.3 of the Code of Federal Regulations Patient History Date of Service: 05/07/23 Reason for admission: Cough shortness of breath History of Present Illness: Patient is 77 years of age with a history of COPD compliant with Trelegyalbuter ol and prednisone came in with sudden onset of shortness of breath productive cough prior to that patient is functional is able to take care of herself Allergies tramadol Allergy (Mild, Verified 02/28/23 16:50) Itching Home Medications: Albuterol Sulfate [Proair Hfa] 2 puff PO Q4H PRN 08/17/21 Citalopram Hydrobromide [Citalopram HBr] 2 tab PO DAILY 08/17/21 Hydrocodone Bit/Acetaminophen [[place]ford 7.5-325 Tablet] 1 tab PO BID PRN 08/17/21 Albuterol Neb [Proventil 0.083% Neb Soln] 2.5 mg NEB [id number] PRN 02/28/23 Trazodone [Desyrel*] 50 mg PO BEDTIME 02/28/23 Ciprofloxacin HCl [Cipro 500 MG Tablet] 500 mg PO BID 5 Days #10 tab 03/02/23 Lactobacillus Acidophilus [Acidophilus Lactobacilli] 1 each PO BID 5 Days #10 tab 03/02/23 Senosides [Senokot*] 8.6 mg PO DAILY PRN tab 03/02/23 metroNIDAZOLE [Flagyl] 375 mg PO Q8H 5 Days #15 mg 03/02/23 - Past Medical/Surgical History Diabetic: No -: COPD -: Hypertension -: Hyperlipidemia - Social History Alcohol use: No CD- Drugs: No Caffeine use: Yes Review of Systems 10-point ROS is otherwise unremarkable General: Weakness Respiratory: Cough, Shortness of Breath Physical Examination - Vital Signs Temperature: 98.1 F Blood Pressure: 111/76 Pulse: 109 Respirations: 22 Pulse Ox (%): 98 - Physical Exam General: Alert, Oriented x3 HEENT: Atraumatic Neck: Supple Respiratory: Diminished, Expiratory wheezes Cardiovascular: No edema, Normal pulses, Regular rate/rhythm, Normal S1 S2 Gastrointestinal: Normal bowel sounds, Soft and benign, Non-distended Musculoskeletal: No clubbing, No swelling Integumentary: No rashes, No breakdown Neurological: Normal speech, Normal strength at 5/5 x4 extr - Studies Laboratory Data (last 24 hrs) 05/07/23 05/07/23 05/07/23 19:40 19:40 19:40 WBC 26.20 H Hgb 14.0 Hct 42.2 Plt Count 289 PT 16.5 H INR 1.52 APTT 30.1 Sodium 136 Potassium 3.6 BUN 11 Creatinine 0.65 Glucose 130 H Magnesium 1.9 Total Bilirubin 1.2 H AST 26 ALT 36 Alkaline Phosphatase 83 Assessment and Plan - Problems (Diagnosis) (1) Pneumonia Current Visit: Yes Status: Acute Plan: Patient is 77 years of age with a history of severe COPD admitted with acute onset of dyspnea productive cough chest x-ray is abnormal she has bibasilar changes left greater than the right her white count is elevated up to 26,000 blood sugar is also mildly increased quit smoking apparently recently plan to admit treat with IV antibiotics she is at risk for resistant infections add levofloxacin sputum cultures Labs reviewed add bronchodilators resume home Trelegy repeat PA and lateral chest x-ray tomorrow Qualifiers: Pneumonia type: due to unspecified organism - Advance Directives Does patient have a Living Will: No Does patient have a Durable POA for Healthcare: No
[2023-05-07] MEDS: ARFORMOTEROL TARTRATE 15 MCG/2 ML VIAL.NEB NEB SCH (23:28)
[2023-05-08] MEDS: IPRATROPIUM BROM 0.5MG/2.5ML NEB SCH (01:00)
[2023-05-08] MEDS ORDERED: METHYLPREDNISOLONE 40 MG INJ IV SCH (01:00)
[2023-05-08] MEDS: Levofloxacin 750mg IV 750 MG/150 ML BAG IV SCH (01:53)
[2023-05-08 02:43] VITALS: BMI 28.3
[2023-05-08] MEDS ORDERED: IPRATROPIUM BROM 0.5MG/2.5ML NEB SCH (03:00)
[2023-05-08 07:20] LABS: Basophils % 0.2 % (0-1.3); Hematocrit 42.2 % (36.0-45.0); Hemoglobin 13.8 g/dL (12.0-15.0); Lymphocytes % 2.2 % (15.3-44.8); MCH 30.1 pg (27.0-35.0); MCHC 32.8 g/dL (32.0-36.0); MCV 91.8 fL (80-100); MPV 7.7 fL (7.6-11.3); Monocytes % 1.4 % (3.3-12.3); Neutrophils % 96.2 % (41.7-73.7); Platelets 283 thou/uL (152-406); RBC Red Blood Cell Count 4.59 M/uL (3.86-4.86); Red Cell Distribution Width 16.1 % (12.1-15.2)
[2023-05-08 07:21] LABS: Absolute Lymphocytes (CBC) 0.4 K/uL (0.7-4.9); Absolute Monocytes 0.3 K/uL (0.1-1.3); Absolute Neutrophil 19.1 K/uL (1.8-8.0)
--- NOTE | 2023-05-08 07:32 | RAD REPORT ---
EXAM DESCRIPTION: RAD - Chest Pa And Lat (2 Views) - 05/08/2023 6:11 am CLINICAL HISTORY: pneumonia Chest pain. COMPARISON: Chest Single View dated 05/07/2023; Abdomen 1 View (KUB) dated 03/01/2023; Chest Single Vie w dated 08/17/2021; Abdomen 1 View (KUB) dated 03/16/2019 FINDINGS: There has been mild improvement in bilateral interstitial lung opacities since the 024 study. Left lung base posterior patchy opacity is noted suggesting a focal infiltrate. The heart is mildly enlarged in size. No displaced fractures. IMPRESSION: Small to moderate focal infiltrate is seen left lung base posteriorly compatible with pn eumonia. Overall lung aeration appears fractionally improved since yesterday's study.
[2023-05-08 08:07] LABS: Anion Gap 7.9 mEq/L (5.0-15.0); Potassium 3.9 mEq/L (3.5-5.1)
[2023-05-08] MEDS: predniSONE 20 MG TAB PO SCH (08:18)
[2023-05-08] MEDS: ENOXAPARIN 40 MG/0.4 ML SQ SCH (08:19)
--- NOTE | 2023-05-08 08:32 | P.PN ---
Subjective Date of Service: 05/08/23 Chief Complaint: Cough shortness of breath Subjective: Improving (Pt without home O2) <Ira Xavier - Last Filed: 05/08/23 08:35> Date of Service: 05/08/23 <Awilda Kelly - Last Filed: 05/08/23 16:24> Review of Systems 10-point ROS is otherwise unremarkable Respiratory: Cough, Shortness of Breath, SOB with Excertion, As per HPI <Ira Xavierlen - Last Filed: 05/08/23 08:35> Physical Examination - Vital Signs Temperature: 96.8 F Blood Pressure: 120/73 Pulse: 77 Respirations: 16 Pulse Ox (%): 93 - Physical Exam General: Alert, In no apparent distress, Oriented x3 HEENT: Atraumatic, Normocephalic Neck: Supple, 2+ carotid pulse no bruit Respiratory: Crackles/rales (Left) Cardiovascular: Normal pulses, Regular rate/rhythm Capillary refill: <2 Seconds Gastrointestinal: Soft and benign Musculoskeletal: No clubbing, No swelling Integumentary: No rashes Neurological: Normal speech, Normal tone Lymphatics: No axilla or inguinal lymphadenopathy External genitalia: Deferred Rectal: Deferred - Studies Laboratory Data (last 24 hrs) 05/07/23 05/07/23 05/07/23 19:40 19:40 19:40 WBC 26.20 H Hgb 14.0 Hct 42.2 Plt Count 289 PT 16.5 H INR 1.52 APTT 30.1 Sodium 136 Potassium 3.6 BUN 11 Creatinine 0.65 Glucose 130 H Magnesium 1.9 Total Bilirubin 1.2 H AST 26 ALT 36 Alkaline Phosphatase 83 <Ira Xavierlen - Last Filed: 05/08/23 08:35> - Studies Laboratory Data (last 24 hrs) 05/07/23 05/07/23 05/07/23 19:40 19:40 19:40 WBC 26.20 H Hgb 14.0 Hct 42.2 Plt Count 289 PT 16.5 H INR 1.52 APTT 30.1 Sodium 136 Potassium 3.6 BUN 11 Creatinine 0.65 Glucose 130 H Magnesium 1.9 Total Bilirubin 1.2 H AST 26 ALT 36 Alkaline Phosphatase 83 <Awilda Kelly - Last Filed: 05/08/23 16:24> Assessment And Plan - Plan (1) Pneumonia with sepsis, without shock (2 ) COPD with acute exacerbation (3) Smoking cessation (recent) Current Visit: Yes Status: Acute Plan: Chest x-ray is abnormal: bibasilar changes left greater than the right. Her white count is elevated up to 26,000, blood sugar is also mildly increased trend labs, blood/sputum cultures pending add bronchodilators resume home Trelegy Levofloxacin IV repeat PA and lateral chest x-ray tomorrow set up home Oxygen Qualifiers: Pneumonia type: due to unspecified organism <Ira Xavier - Last Filed: 05/08/23 08:35> Date of Service: 05/08/23 Agree with findings with mentioned above. Patient seen and examined. Patient with pneumonic process along with COPD exacerbation. Patient requiring 3 to 4 L of oxygen. Patient does not wear oxygen at home. Will continue with nebs, steroids, and antibiotics. Incentive spirometer at bedside. Out of bed and ambulate. Anticipate discharge over the next 24 to 48 hours. <Awilda Kelly - Last Filed: 05/08/23 16:24>
--- NOTE | 2023-05-08 18:57 | RAD REPORT ---
EXAM DESCRIPTION: Chest Abd Pelvis Wo Con 05/08/2023 1:21 AM CDT CLINICAL HISTORY: 77 years, Female, pneumonia COMPARISON: 02/28/2023 TECHNIQUE: Axial images through the chest, abdomen and pelvis were generated utilizing 5 mm slight t hickness at 5 mm interval reconstruction without the administration of IV contrast. In addition multiplanar reformats in the coronal and sagittal plane were obtained and reviewed. An individualized dose optimization technique, Automated Exposure Control, was utilized for the perfo rmed procedure. FINDINGS: CHEST: Lower neck/chest wall: Visualized thyroid gland and soft tissues are normal. No marcella nopathy. Lungs and airways: There is minimal tree-in-bud nodularity is with bronchial thickening lower portion s of bilateral upper lobes and slightly more pronounced along the posterior segment bilateral lower l obes. Focus of consolidation within the posterior segment left lower lobe, findings correspond to inf ection/inflammation/bronchopneumonia. Airways: The trachea mainstem bronchus demonstrate to be unremarkable. Pleural: There are no pleural effusion. No evidence for pneumothorax. Hemidiaphragms are normally pos itioned. Mediastinum and lymph nodes: There are prominent subclinical AP window lymph nodes most likely reacti ve in nature. No significant mediastinal and/or hilar lymphadenopathy. The axillary regions demonstra te to be clear. Heart: Normal heart size. No pericardial effusion. No coronary arteries calcifications. Thoracic aorta: There is minimal intimal aortic arch calcification with no evidence for aneurysm. Pulmonary arteries: The pulmonary arteries were not evaluated due to lack of IV contrast. Osseous structures and chest wall: The thoracic spine demonstrate slight pronounced lordotic curve. N o evidence for compression deformities and/or significant skeletal lesions. ABDOMEN AND PELVIS: Liver: Grossly the unopacified liver demonstrates to be normal, no focal lesions are identified. Gallbladder: The gallbladder demonstrate to be normal. Adrenal glands: Grossly the unopacified adrenal glands demonstrate to be normal. Pancreas: The pancreas demonstrate to be partially fatty replaced.. Spleen: The spleen demonstrate to be normal. Kidneys: Grossly the unopacified kidneys demonstrate to be within normal limits. There are bilateral parapelvic renal cysts lower pole slightly greater left than right on axial image [id number]. There is a l ower pole right renal calculus measuring 3.6 mm on image 81. There is no evidence for hydronephrosis and/or hydroureter in either kidney. GI: Grossly the unopacified stomach, small bowel and large bowel demonstrate to be within normal limi ts. No evidence for bowel dilatation and/or free air. The appendix was difficult to visualized. The l eft-sided colon demonstrate to be decompressed with no gross abnormalities. : The urinary bladder demonstrate to be unremarkable. Genitalia: The uterus demonstrate to be within normal limits. There are normal adnexal structures. Abdominal aorta: The aorta demonstrate the presence of atherosclerotic disease extending into the aor tic bifurcation and iliac arteries. Retroperitoneum: There is no retroperitoneal lymphadenopathy. There is no evidence for ascites and/or abnormal fluid collections. Bones: The bones demonstrate to be demineralized with minimal degenerative changes L3-S1. Soft tissues: The rest of the soft tissue and bony structures are within normal limits. IMPRESSION: Focus of consolidation within the posterior segment left lower lobe lower lobe, and tree -in-bud nodularity corresponding to infection/inflammation/bronchopneumonia. Bilateral parapelvic renal cysts. 3.6 mm nonobstructing lower pole right renal calculus. Atherosclerotic disease of the aorta. No evidence for acute intra-abdominal process. Electronically signed by: Rancho Pappas MD 05/08/2023 01:28 AM CDT Due to temporary technical issues with the PACS/Fluency reporting system, reports are being signed by the in house radiologists without review as a courtesy to insure prompt reporting. The interpreting radiologist is fully responsible for the content of the report.
[2023-05-08] MEDS ORDERED: HYDROCODONE/APAP 7.5/325 MG TAB PO PRN (23:08)
[2023-05-08] MEDS: TRAZODONE 50 MG TABLET PO PRN (23:31)
[2023-05-09 07:11] LABS: Absolute Basophils 0.3 K/uL (0-0.5); Absolute Neutrophil 21.1 K/uL (1.8-8.0); Basophils % 1.2 % (0-1.3); Hematocrit 37.3 % (36.0-45.0); Hemoglobin 12.3 g/dL (12.0-15.0); Lymphocytes % 4.1 % (15.3-44.8); MCH 30.2 pg (27.0-35.0); MCHC 33.1 g/dL (32.0-36.0); MCV 91.3 fL (80-100); MPV 7.8 fL (7.6-11.3); Monocytes % 4.4 % (3.3-12.3); Neutrophils % 90.3 % (41.7-73.7); Platelets 309 thou/uL (152-406); RBC Red Blood Cell Count 4.08 M/uL (3.86-4.86); Red Cell Distribution Width 15.9 % (12.1-15.2)
[2023-05-09 07:29] LABS: Albumin 2.7 g/dL (3.4-5.0); Albumin/Globulin Ratio 0.6 (1.1-1.8); Anion Gap 8.7 mEq/L (5.0-15.0); Bilirubin Total 0.3 mg/dL (0.2-1.0); Globulin 4.2 g/dL (2.3-3.5); Magnesium 2.2 mg/dL (1.6-2.4); Potassium 3.7 mEq/L (3.5-5.1); Protein, Total 6.9 g/dL (6.4-8.2)
[2023-05-09] MEDS: CITALOPRAM 10 MG TABLET PO SCH (07:51)
[2023-05-09] MEDS: POTASSIUM CL SA 10 MEQ TAB PO ONE (07:51)
[2023-05-09] MEDS ORDERED: ALBUTEROL 2.5 MG/3 ML NEB SOL NEB PRN (07:53)
[2023-05-09 08:27] LABS: Blood Morphology Comment NOT SEEN (NOT SEEN); Differential Total Cells Count 100; Lymphocytes 5 % (15-42); Monocytes 3 % (0-10); Platelet Estimate ADEQ; Segmented Neutrophils 92 % (40-80)
[2023-05-09] MEDS: HOME MED (Fluticasone/Umeclidin/Vilanter [Trelegy Ellipta 100-62.5-25] Blst.W.Dev IH SCH (09:00)
--- NOTE | 2023-05-09 10:53 | P.PN ---
Subjective Date of Service: 05/09/23 Chief Complaint: Cough shortness of breath States she is feeling better, continues to require 3-4L O2 via N/C, getting neb treatments, steroids, afebrile. Will need home O2 set up Review of Systems 10-point ROS is otherwise unremarkable Respiratory: Cough, Shortness of Breath, As per HPI Physical Examination - Vital Signs Temperature: 97.8 F Blood Pressure: 104/73 Pulse: 85 Respirations: 22 Pulse Ox (%): 89 - Physical Exam General: Alert, Oriented x3 HEENT: Atraumatic Neck: Supple, JVD not distended Respiratory: Diminished, Expiratory wheezes, Other (left base) Cardiovascular: No edema, Normal pulses, Regular rate/rhythm Capillary refill: <2 Seconds Gastrointestinal: Soft and benign Musculoskeletal: No clubbing, No swelling Integumentary: No rashes Neurological: Normal speech, Normal tone Lymphatics: No axilla or inguinal lymphadenopathy External genitalia: Deferred Rectal: Deferred Assessment And Plan - Plan (1) Pneumonia with sepsis, without shock Qualifiers: Pneumonia type: due to unspecified organism (2 ) COPD with acute exacerbation (3) Smoking cessation (recent) Current Visit: Yes Status: Acute Plan: Chest x-ray is abnormal: bibasilar changes left greater than the right. Her white count is elevated again (23.4) possibly second to steroids, blood sugar is also mildly increased (121), again possibly steroid related. She remains afebrile trend labs, blood/sputum cultures negative 05/09/23 bronchodilators resume home Trelegy Levofloxacin IV continues x-ray report from 05/08/23 "IMPRESSION: Small to moderate focal infiltrate is seen left lung base posteriorly compatible with pneumonia. Overall lung aeration appears fractionally improved since yesterday's (05/07/23) study." set up home Oxygen DVT prophylaxis: Lovenox Discharge Plan: Home Plan to discharge in: 24 Hours
--- NOTE | 2023-05-09 15:30 | EKG ---
Test Date: 2023-05-07 Test Time: 19:46:30 Food Service: MALATHI MEASUREMENT RESULTS: Intervals: Rate: 104 AK: 118 QRSD: 74 QT: 336 QTc: 441 [place]: P: 54 AK: 118 QRS: -45 T: 53 INTERPRETIVE STATEMENTS: Sinus tachycardia Left anterior fascicular block Cannot rule out Anterior infarct, age undetermined Abnormal ECG Compared to ECG 02/28/2023 09:39:36 Left anterior fascicular block now present Sinus rhythm no longer present Myocardial infarct finding still present Electronically Signed On 05-09-23 15:29:50 CDT by Dylan Clayton
[2023-05-10 06:23] LABS: Absolute Monocytes 0.6 K/uL (0.1-1.3); Absolute Neutrophil 15.3 K/uL (1.8-8.0); Basophils % 0.1 % (0-1.3); Hematocrit 35.8 % (36.0-45.0); Lymphocytes % 6.2 % (15.3-44.8); MCH 30.6 pg (27.0-35.0); MCHC 33.5 g/dL (32.0-36.0); MCV 91.2 fL (80-100); MPV 7.3 fL (7.6-11.3); Monocytes % 3.4 % (3.3-12.3); Neutrophils % 90.3 % (41.7-73.7); Platelets 300 thou/uL (152-406); RBC Red Blood Cell Count 3.93 M/uL (3.86-4.86); Red Cell Distribution Width 15.6 % (12.1-15.2)
[2023-05-10 06:43] LABS: Albumin 2.6 g/dL (3.4-5.0); Albumin/Globulin Ratio 0.7 (1.1-1.8); Anion Gap 8.2 mEq/L (5.0-15.0); Bilirubin Total 0.3 mg/dL (0.2-1.0); Potassium 4.2 mEq/L (3.5-5.1); Protein, Total 6.6 g/dL (6.4-8.2)
[2023-05-10] MEDS: ALBUTEROL INHALER 200 PUFF/6.7 GM IH PRN (08:53)
--- NOTE | 2023-05-10 10:33 | P.PN ---
Subjective Date of Service: 05/10/23 Chief Complaint: Cough shortness of breath Pt is resting comfortably in bed. She reports coughing up yellow phlegm. Pt is using 3L BNC. No other complaints. Review of Systems General: Unremarkable Eyes: Unremarkable ENT: Unremarkable Respiratory: Cough, SOB with Excertion Cardiovascular: Unremarkable Gastrointestinal: Unremarkable Genitourinary: Unremarkable Musculoskeletal: Unremarkable Integumentary: Unremarkable Neurological: Unremarkable Lymphatics: Unremarkable Physical Examination - Vital Signs Temperature: 97.0 F Blood Pressure: 118/79 Pulse: 78 Respirations: 20 Pulse Ox (%): 91 - Physical Exam General: Alert, In no apparent distress, Oriented x3 HEENT: Atraumatic, Normocephalic Neck: Supple, 2+ carotid pulse no bruit Respiratory: Clear to auscultation bilaterally, Normal air movement Cardiovascular: No edema, Normal pulses, Regular rate/rhythm, Normal S1 S2 Capillary refill: <2 Seconds Gastrointestinal: Normal bowel sounds, Soft and benign, Non-distended Musculoskeletal: No clubbing, No swelling Integumentary: No rashes, No breakdown, No significant lesion Neurological: Normal gait, Normal speech, Normal strength at 5/5 x4 extr Lymphatics: No axilla or inguinal lymphadenopathy Assessment And Plan - Plan Sepsis 2/2 pneumonia: Will continue levaquin. No growth on blood cx. CXR shows bibasilar changes ( L > R). WBC is trending down 23 -> 17. Acute COPD exacerbation: will continue steroid, levaquin, duoneb and prn oxygen. Depression: Will continue citalopram. Tobacco abuse: Pt was advised to quit smoking. DVT prophylaxis: Lovenox Discharge Plan: Home
[2023-05-10] MEDS: levoFLOXacin 750 MG TAB PO SCH (10:55)
--- NOTE | 2023-05-10 12:33 | P.PN ---
Subjective Date of Service: 05/10/23 Chief Complaint: COPD exacerbation Subjective: Improving (Patient is improving still has some dyspnea on exertion) Review of Systems General: Weakness Respiratory: Shortness of Breath Physical Examination - Vital Signs Temperature: 97.0 F Blood Pressure: 118/79 Pulse: 78 Respirations: 20 Pulse Ox (%): 91 - Physical Exam General: Alert, Oriented x3 Respiratory: Clear to auscultation bilaterally, Diminished Cardiovascular: No edema, Regular rate/rhythm Assessment And Plan - Current Problems (Diagnosis) (1) Pneumonia Current Visit: Yes Status: Acute Plan: Patient is 77 years of age admitted with presumed left lower lobe pneumonia chest x-ray has improved patient's white count is declining vital signs are stable oxygenation satisfactory patient stable for discharge to go to p.o. levofloxacin Qualifiers: Pneumonia type: due to unspecified organism
[2023-05-11 11:59] VITALS: TEMP 97.7
--- NOTE | 2023-05-11 13:59 | P.DS ---
Admission Date: 05/07/23 Discharge Date: 05/11/23 Disposition: ROUTINE DISCHARGE Discharge Condition: GOOD Reason for Admission: COPD exacerbation Brief History of Present Illness: Patient is 77 years of age with a history of COPD compliant with Trelegyalbuterol and prednisone who presented with sudden onset of shortness of breath and productive cough which made him come to the er for evaluation. Pt was admitted for acute COPD exacerbation. Hospital Course: Patient is 77 years of age with a history of COPD compliant with Trelegy, albuterol and prednisone who presented with sudden onset of shortness of breath and productive cough which made him come to the ER for evaluation. Pt was admitted for acute COPD exacerbation. CXR shows pneumonia. We gave steroid, levaquin, duoneb and 2l oxygen. The symptoms improved. Pt could not be weaned off oxygen. She qualified for home oxygen. Pt was advised to complete prednisone and levaquin at home as prescribed. We continued home meds for other chronic medical problems. Vital Signs/Physical Exam: Temp Pulse Resp BP Pulse Ox 97.7 F 88 18 131/73 93 05/11/23 11:47 05/11/23 11:47 05/11/23 11:47 05/11/23 11:47 05/11/23 11:47 Laboratory Data at Discharge: WBC 17.00 thou/uL (4.3-10.9) H 05/10/23 05:55 Hgb 12.0 g/dL (12.0-15.0) 05/10/23 05:55 Hct 35.8 % (36.0-45.0) L 05/10/23 05:55 Plt Count 300 thou/uL (152-406) 05/10/23 05:55 PT 16.5 SECONDS (9.5-12.5) H 05/07/23 19:40 INR 1.52 05/07/23 19:40 APTT 30.1 SECONDS (24.3-36.9) 05/07/23 19:40 Sodium 141 mEq/L (136-145) 05/10/23 05:55 Potassium 4.2 mEq/L (3.5-5.1) D 05/10/23 05:55 BUN 28 mg/dL (7-18) H 05/10/23 05:55 Creatinine 0.64 mg/dL (0.55-1.02) 05/10/23 05:55 Glucose 112 mg/dL (74-106) H 05/10/23 05:55 Magnesium 2.2 mg/dL (1.6-2.4) 05/09/23 05:55 Total Bilirubin 0.3 mg/dL (0.2-1.0) 05/10/23 05:55 AST 43 U/L (15-37) H 05/10/23 05:55 ALT 69 U/L (13-56) H 05/10/23 05:55 Alkaline Phosphatase 63 U/L (45-117) 05/10/23 05:55 Home Medications: Albuterol Sulfate [Proair Hfa] 2 puff PO Q6H PRN 08/17/21 Hydrocodone Bit/Acetaminophen [[place] 7.5-325 Tablet] 1 tab PO BID PRN 08/17/21 Citalopram Hydrobromide [Citalopram HBr] 40 mg PO DAILY 05/08/23 Fluticasone/Umeclidin/Vilanter [Trelegy Ellipta 100-62.5-25] 1 each IH DAILY 05/08/23 Prednisolone Sod Phosphate [Prednisolone Sodium Phos Odt] 10 mg PO DAILY 05/08/23 Trazodone HCl 50 mg PO BEDTIME PRN 05/08/23 levoFLOXacin [Levaquin*] 750 mg PO DAILY 5 Days #5 tab 05/11/23 predniSONE [Prednisone*] 20 mg PO BIDWM 4 Days #2 tab 05/11/23 New Medications: levoFLOXacin [Levaquin*] 750 mg PO DAILY 5 Days #5 tab predniSONE [Prednisone*] 20 mg PO BIDWM 4 Days #2 tab Physician Discharge Instructions: Continue ad zachery activity. Take levaquin, prednisone and other home meds as prescribed. Use 2L oxygen at home. Follow up with PCP within 1 week. Diet: AHA Activity: Ad zachery Followup: Fly Mohamud, [Primary Care Provider] -
[2023-05-11 16:26] VITALS: BP 119/72
[2023-05-11 16:27] VITALS: O2SAT 94
--- NOTE | 2023-05-11 17:11 | P.PN ---
Subjective Date of Service: 05/11/23 Chief Complaint: COPD exacerbation Subjective: Improving (Doign much better) Review of Systems General: Weakness Respiratory: Shortness of Breath Physical Examination - Vital Signs Temperature: 97.7 F Blood Pressure: 119/72 Pulse: 89 Respirations: 18 Pulse Ox (%): 93 - Physical Exam General: Alert, Oriented x3 Respiratory: Clear to auscultation bilaterally, Diminished Assessment And Plan - Current Problems (Diagnosis) (1) Pneumonia Current Visit: Yes Status: Acute Plan: pt is doing much better. Stable to go home on LevaquinCultures negwill qualify for homeO2 Qualifiers: Pneumonia type: due to unspecified organism
== END 2023-05-11 18:45 | disposition home or self-care (01) | DRG 871 ==
LOC: ER 18:57 → ERHOLD 23:06 → 2ND 23:36
PROVIDERS: ADMIT Internal Medicine Sleep Medicine; ATTEND Hospitalist
DX: A41.9 Sepsis, unspecified organism (principal); J18.9 Pneumonia, unspecified organism; J44.1 Chronic obstructive pulmonary disease with (acute) exacerbation; J44.0 Chronic obstructive pulmonary disease with (acute) lower respiratory infection; F32.A Depression, unspecified; E78.5 Hyperlipidemia, unspecified; N28.1 Cyst of kidney, acquired; F17.210 Nicotine dependence, cigarettes, uncomplicated; Z88.5 Allergy status to narcotic agent; Z79.52 Long term (current) use of systemic steroids; Z79.899 Other long term (current) drug therapy
CPT/HCPCS: 36415; 71045; 71046; 71250; 74176; 80048; 80053; 80076; 82947; 83605; 83735; 83880; 84484; 85025; 85610; 85730; 87040; 87070; 87205; 93005; 94640; 99285; J0696; J1650; J2930; J7050; J7512; J7605; J7613; J7644

== ENCOUNTER 2024-05-03 23:49 | Inpatient (IN) | payer OTHER ==
[2024-05-04] MEDS ORDERED: ALBUTEROL 2.5 MG/3 ML NEB SOL ONE (00:02)
[2024-05-04] MEDS ORDERED: IPRATROPIUM BROM 0.5MG/2.5ML ONE (00:02)
[2024-05-04] MEDS ORDERED: MORPHINE 4 MG/ML SYR ONE (00:03)
[2024-05-04] MEDS ORDERED: NA CHLORIDE 0.9% 100 ML ONE ×2 (00:10→03:44)
[2024-05-04] MEDS ORDERED: METHOCARBAMOL 1,000 MG/10 ML VIAL ONE (00:10)
[2024-05-04] MEDS ORDERED: ONDANSETRON 4 MG/2 ML VIAL ONE (00:10)
[2024-05-04 00:51] LABS: Absolute Basophils 0.1 K/uL (0-0.5); Absolute Lymphocytes (CBC) 2.6 K/uL (0.7-4.9); Absolute Monocytes 2.1 K/uL (0.1-1.3); Basophils % 0.3 % (0-1.3); Eosinophils % 0.2 % (0-4.4); Hematocrit 41.9 % (36.0-45.0); Hemoglobin 13.6 g/dL (12.0-15.0); Lymphocytes % 12.4 % (15.3-44.8); MCH 30.8 pg (27.0-35.0); MCHC 32.4 g/dL (32.0-36.0); MCV 95.3 fL (80-100); MPV 7.8 fL (7.6-11.3); Monocytes % 10.3 % (3.3-12.3); Neutrophils % 76.8 % (41.7-73.7); Nucleated Red Blood Cells % 0.1 % (0-0); PTT, Activated Partial Thromb 26.7 SECONDS (27.2-37.4); Platelets 333 thou/uL (152-406); Protime INR 1.15; Red Cell Distribution Width 14.7 % (12.1-15.2)
[2024-05-04 00:59] LABS: Albumin 3.1 g/dL (3.4-5.0); Albumin/Globulin Ratio 0.8 (1.1-1.8); Anion Gap 7.4 mEq/L (5.0-15.0); Bilirubin Direct 0.2 mg/dL (0-0.2); Bilirubin Indirect, Calculated 0.3 mg/dL (0.2-0.8); Bilirubin Total 0.5 mg/dL (0.2-1.0); Globulin 4.1 g/dL (2.3-3.5); Magnesium 1.8 mg/dL (1.6-2.4); Potassium 3.4 mEq/L (3.5-5.1); Protein, Total 7.2 g/dL (6.4-8.2); Troponin High Sensitivity 11.1 pg/mL (<58.9)
[2024-05-04 01:46] LABS: Blood Gas Oxyhemoglobin 96.1 % (94-97); Blood O2 Saturation 97.7 % (92-98.5)
[2024-05-04 01:47] LABS: Arterial Blood Carboxyhemoglob 0.6 % (0-1.5); Blood Gas THB 13.6 g/dl (12-18)
[2024-05-04 01:54] LABS: Band Neutrophils 23 % (0-1); Differential Total Cells Count 100; Lymphocytes 7 % (15-42); Metamyelocytes 2 % (0-0); Monocytes 12 % (0-10); Segmented Neutrophils 56 % (40-80)
[2024-05-04 01:55] LABS: Blood Morphology Comment NOT SEEN (NOT SEEN); Platelet Estimate ADEQ
--- NOTE | 2024-05-04 03:37 | EDPHYS ---
Physician Documentation [facility] Name: Patito Maher Age: 78 yrs Sex: Female : 1945 Arrival Date: 05/03/2024 Time: 23:49 Bed 8 Private MD: ED Physician Adam Valenzuela HPI: 05/03 23:53 This 78 yrs old Female presents to ER via Unassigned with complaints of sp4 Breathing Difficulty. 05/04 03:37 77-year-old female with past medical history of severe COPD oxygen dependent on Trelegy sp4 and prednisone daily, presents with moderate to severe respiratory distress associated with diaphoresis. Patient states her respiratory problem has been getting worse for the past 3 days. Home medications include albuterol, hydrocodone 7.5 as needed, citalopram 40 daily, Trelegy daily, prednisone 10 mg daily, trazodone 50 mg bedtime, history of prior admission for the same 05/07/2023.. Historical: - Allergies: 00:18 tramadol; bm8 - Home Meds: 00:18 Albuterol Inhl [Active]; Trelegy Ellipta inhalation [Active]; bm8 - PMHx: 00:18 Chronic obstructive lung disease; bm8 - PSHx: 00:18 None; bm8 - Immunization history:: Adult Immunizations up to date. - Infectious Disease History:: Denies. - Social history:: Smoking status: unknown. - Family history:: not pertinent. ROS: 03:37 Constitutional: Negative for fever, chills, and weight loss, positive respiratory sp4 distress, positive dyspnea, positive wheezing, positive moderate to severe back pain 03:37 All other systems are negative, Exam: 03:37 Constitutional: Frail elderly female in moderate to severe respiratory distress, sp4 diaphoretic on arrival, dyspneic tachypnea, ambulatory on arrival Head/Face: Normocephalic, atraumatic. Eyes: Pupils equal round and reactive to light, extra-ocular motions intact. Lids and lashes normal. Conjunctiva and sclera are not injected. Cornea within normal limits. Periorbital areas with no swelling, redness, or edema. ENT: Nares patent. No nasal discharge, no septal abnormalities noted. Tympanic membranes are normal and external auditory canals are clear. Oropharynx with no redness, swelling, or masses, exudates, or evidence of obstruction, uvula midline. Mucous membranes moist. Neck: Trachea midline, no thyromegaly or masses palpated, and no cervical lymphadenopathy. Supple, full range of motion without nuchal rigidity, or vertebral point tenderness. Chest/axilla: Normal chest wall appearance and motion. Nontender with no deformity. No lesions are appreciated. Cardiovascular: Regular rate and rhythm with a normal S1 and S2. No gallops, murmurs, or rubs. Normal PMI, no JVD. No pulse deficits. Respiratory: Lungs have equal breath sounds bilaterally, clear to auscultation and percussion. No rales, rhonchi or wheezes noted. No increased work of breathing, no retractions or nasal flaring. Abdomen/GI: Soft, with normal bowel sounds. No distension or tympany. No guarding or rebound. No evidence of tenderness throughout. Back: No spinal tenderness. No costovertebral tenderness. Skin: Warm, dry with normal turgor. Normal color with no rashes, no lesions, and no evidence of cellulitis. MS/ Extremity: Pulses equal, no cyanosis. Neurovascular intact. Full, normal range of motion. Neuro: Awake and alert, GCS 15, oriented to person, place, time, and situation. Cranial nerves II-XII grossly intact. Motor strength 5/5 in all extremities. Sensory grossly intact. Psych: Awake, alert, with orientation to person, place and time. Behavior, mood, and affect are within normal limits 03:37 ECG was reviewed by the Attending Physician. EKG 0 122 Vital Signs: 05/03 23:50 BP 147 / 96; Pulse 107; Resp 26; Temp 98.3; Pulse Ox 66% on R/A; Weight 65 kg; Height 5 bm8 ft. 2 in. ; Pain 08/01; 05/04 00:25 BP 120 / 95; Pulse 109; Resp 24; Temp 98.3; Pulse Ox 94% on 10 lpm Nebulizer Mask; Pain bm8 5/10; 02:00 BP 97 / 76; Pulse 88; Resp 22; Temp 98.3; Pulse Ox 99% on BiPAP; FiO2 60 %; Pain 0/10; bm8 03:56 BP 109 / 83; Pulse 94; Resp 22; Temp 98.3; Pulse Ox 99% ; Pain 0/10; bm8 05:29 BP 108 / 76; Pulse 91; Resp 22; Temp 98.3; Pulse Ox 97% on BiPAP; FiO2 45 %; Pain 0/10; bm8 05/03 23:50 Body Mass Index 26.21 (65.00 kg, 157.48 cm) bm8 05/03 23:50 Pain Scale: Adult bm8 05/04 00:25 Pain Scale: Adult bm8 02:00 Pain Scale: Adult bm8 03:56 Pain Scale: Adult bm8 05:29 Pain Scale: Adult bm8 [place] Score: 00:25 Eye Response: spontaneous(4). Motor Response: obeys commands(6). Verbal Response: bm8 oriented(5). Total: 15. 02:00 Eye Response: spontaneous(4). Motor Response: obeys commands(6). Verbal Response: bm8 oriented(5). Total: 15. 03:37 Eye Response: spontaneous(4). Motor Response: obeys commands(6). Verbal Response: sp4 oriented(5). Total: 15. 03:56 Eye Response: spontaneous(4). Motor Response: obeys commands(6). Verbal Response: bm8 oriented(5). Total: 15. 05:29 Eye Response: spontaneous(4). Motor Response: obeys commands(6). Verbal Response: bm8 oriented(5). Total: 15. MDM: 01:22 Differential diagnosis: Anemia Anxiety Reaction asthma, Bronchitis CHF exacerbation, sp4 Chronic Obstructive Pulmonary Disease pneumonia. Antibiotic administration: Rocephin , Zithromax IV ordered. Data reviewed: vital signs, nurses notes, EMS record, old medical records, lab test result(s), EKG, radiologic studies, plain films. Consideration of Admission/Observation Patient was admitted/placed on observation. Escalation of care including admission/observation considered. ED course: TIME OF STUDY: 05/03/2024 11:54 PM CDT REASON FOR EXAM: CHEST PAIN COMPARISON: None. FINDINGS: AP view of the chest was obtained, chest 1 view. Lungs: The lungs are adequately inflated. No dense airspace consolidation is noted. Prominent interstitial markings are noted bilaterally with mild bronchial wall thickening. This may be due to interstitial pulmonary edema and/or interstitial pneumonia. Pleura: No pneumothorax. There is no pleural effusion. Heart and Mediastinum: Normal cardiomediastinal silhouette and great vessels.. Bones: No acute bony abnormality.. IMPRESSION: 1. Prominent interstitial markings with bronchial wall thickening may be due to interstitial pulmonary edema and/or interstitial pneumonia. . ED course: Patient markedly improved on BiPAP. Stable for admission to ICU for further management of respiratory failure. X-ray revealed possible pneumonia will order IV antibiotics.. 03:37 Medical Screening Exam initiated sp4 05/03 23:54 Order name: BMP; Complete Time: 03:16 4 05/03 23:54 Order name: Blood Culture Adult (2) 4 05/03 23:54 Order name: CBC with Diff; Complete Time: 03:16 4 05/03 23:54 Order name: CPK; Complete Time: 03:16 4 05/03 23:54 Order name: Hepatic Function; Complete Time: 03:16 sp4 05/03 23:54 Order name: Lipase; Complete Time: 03:16 4 05/03 23:54 Order name: Magnesium; Complete Time: 03:16 4 05/03 23:54 Order name: NT PRO-BNP; Complete Time: 03:16 4 05/03 23:54 Order name: PT-INR; Complete Time: 03:16 4 05/03 23:54 Order name: Ptt, Activated; Complete Time: 03:16 4 05/03 23:54 Order name: Troponin HS; Complete Time: 03:16 sp4 05/03 23:54 Order name: ABG; Complete Time: 03:16 sp4 05/04 00:54 Order name: Manual Differential; Complete Time: 03:16 EDMS 05/04 05:22 Order name: Urinalysis w/ reflexes EDMS 05/04 05:22 Order name: CBC with Automated Diff EDMS 05/04 05:22 Order name: CBC with Automated Diff EDMS 05/04 05:22 Order name: Comprehensive Metabolic Panel EDMS 05/04 05:22 Order name: Comprehensive Metabolic Panel MS 05/03 23:54 Order name: XRAY CXR (1 view) [facility] 05/03 23:54 Order name: BIPAP [facility] 05/03 23:54 Order name: Call RT; Complete Time: 01:59 [facility] 05/03 23:54 Order name: EKG; Complete Time: 23:54 [facility] 05/04 05:22 Order name: CONS Physician Consult [facility] 05/03 23:54 Order name: Cardiac monitoring; Complete Time: 00:19 sp4 05/03 23:54 Order name: EKG - Nurse/Tech; Complete Time: 01:59 sp4 05/03 23:54 Order name: IV Saline Lock; Complete Time: 00:19 sp4 05/03 23:54 Order name: Labs collected and sent; Complete Time: 00: sp4 05/03 23:54 Order name: O2 Per Protocol; Complete Time: 00:52 sp4 05/03 23:54 Order name: O2 Sat Monitoring; Complete Time: 00: sp4 EC:22 Rate is 99 beats/min. Rhythm is regular, Sinus Rhythm with PACs. QRS [place] is Normal. MS sp4 interval is normal. QRS interval is normal. QT interval is normal. No Q waves. T waves are Normal. No ST changes noted. Clinical impression: No evidence of ischemia. Interpreted by me. Reviewed by me. Administered Medications: 00:00 Drug: Albuterol Inhalation 2.5 mg Inhalation every 20 minutes x3 Route: Inhalation; bm8 00:00 Drug: Ipratropium Inhalation Aerosol 0.5 mg Inhalation once; Every 20 min for a total bm8 of 3 treatments x3 Route: Inhalation; 00:15 Drug: morphine IVP or IV 4 mg IVP once over 4 mins Route: IVP; Infused Over: 4 mins; bm8 Site: left antecubital; 01:59 Follow up: Response: No adverse reaction bm8 00:15 Drug: Ondansetron IVP 4 mg IVP once; over 2 minutes Route: IVP; Site: left antecubital; bm8 01:58 Follow up: Response: No adverse reaction bm8 00:15 Drug: Methocarbamol IVPB 1 grams IVPB once over 1 hrs; (mix in NS 100 mL) Route: IVPB; bm8 Infused Over: 1 hrs; Site: left antecubital; 01:58 Follow up: Response: No adverse reaction; IV Status: Completed infusion bm8 00:20 Drug: Albuterol Inhalation 2.5 mg Inhalation every 20 minutes x3 Route: Inhalation; bm8 00:20 Drug: Ipratropium Inhalation Aerosol 0.5 mg Inhalation once; Every 20 min for a total bm8 of 3 treatments x3 Route: Inhalation; 00:50 Drug: Albuterol Inhalation 2.5 mg Inhalation every 20 minutes x3 Route: Inhalation; bm8 02:00 Follow up: Response: No adverse reaction bm8 00:50 Drug: Ipratropium Inhalation Aerosol 0.5 mg Inhalation once; Every 20 min for a total bm8 of 3 treatments x3 Route: Inhalation; 02:00 Follow up: Response: No adverse reaction bm8 03:51 Not Given (Patient Refused): morphineor iv 4 mg IVP once over 4 mins bm8 03:51 Not Given (Patient Refused): ondansetron 4 mg IVP once; over 2 minutes bm8 03:51 Drug: Rocephin - Rocephin ([id number]) IVPB 1 grams IVPB once over 30 mins; (mix in 50 bm8 mL NS) Route: IVPB; Infused Over: 30 mins; Site: right antecubital; 05:31 Follow up: Response: No adverse reaction; IV Status: Completed infusion bm8 03:51 Drug: Zithromax IVPB 500 mg IVPB once over 1 hrs; mix in 250 mL NS Route: IVPB; Infused bm8 Over: 1 hrs; Site: right antecubital; 05:31 Follow up: Response: No adverse reaction; IV Status: Completed infusion bm8 Disposition: 03:35 Critical Care:. sp4 Disposition Summary: 05/04/24 03:37 Hospitalization Ordered Notes: Hospitalization Status: Inpatient Admission sp4 Provider: Bertram Arvizu Location: Intensive Care Unit sp4 Condition: Serious sp4 Problem: new sp4 Symptoms: have improved sp4 Bed/Room Type: Standard sp4 Room Assignment: 7-(05/04/24 05:15) nimo Diagnosis - COPD/ Chronic obstructive pulmonary disease with (acute) exacerbation sp4 - Acute respiratory failure with hypoxemia and hypercarbia. Chronic leukocytosis, sp4 acute exacerbation of chronic back pain - Other pneumonia, unspecified organism sp4 Forms: - Medication Reconciliation Form sp4 - SBAR form sp4 - Leadership Thank You Letter sp4 Critical care time excluding procedures: 03:35 Critical care time: Bedside Care: 36 minutes, Consultation: 12 minutes, Family sp4 Intervention: 12 minutes. Total time: 60 minutes Signatures: Dispatcher [employer] Pamela Gardner RN RN kl Potepalov, Sergey, MD MD sp4 Uli Black, RN RN bm8 Corrections: (The following items were deleted from the chart) 05/03 23:54 23:54 BASIC METABOLIC PANEL+C.LAB.BRZ ordered. EDMS EDMS 23:54 23:54 BLOOD CULTURE*+BA.LAB.BRZ ordered. EDMS EDMS 23:54 23:54 CBC+H.LAB.BRZ ordered. EDMS EDMS 23:54 23:54 CREATINE PHOSPHOKINASE+C.LAB.BRZ ordered. EDMS EDMS 23:54 23:54 HEPATIC FUNCTION+C.LAB.BRZ ordered. EDMS EDMS 23:54 23:54 LIPASE+C.LAB.BRZ ordered. EDMS EDMS 23:54 23:54 MAGNESIUM+C.LAB.BRZ ordered. EDMS EDMS 23:54 23:54 PROBNP+C.LAB.BRZ ordered. EDMS EDMS 23:54 23:54 PROTIME (+INR)+COAG.LAB.BRZ ordered. EDMS EDMS 23:54 23:54 PTT, ACTIVATED+COAG.LAB.BRZ ordered. EDMS EDMS 23:54 23:54 Troponin High Sensitivity+C.LAB.BRZ ordered. EDMS EDMS 05/04 05:15 03:37 sp4 kl
--- NOTE | 2024-05-04 03:37 | ER ---
Nurse's Notes [facility] Name: Patito Maher Age: 78 yrs Sex: Female : 1945 Arrival Date: 05/03/2024 Time: 23:49 Bed 8 Private MD: Diagnosis: COPD/ Chronic obstructive pulmonary disease with (acute) exacerbation;Acute respiratory failure with hypoxemia and hypercarbia. Chronic leukocytosis, acute exacerbation of chronic back pain;Other pneumonia, unspecified organism Presentation: 05/03 23:50 Chief complaint: EMS states: PT c/o shortness of breath and difficulty breathing for 4 bm8 days, today became much worse. 23:50 Method Of Arrival: EMS: [facility] bm8 23:50 Coronavirus screen: At this time, the client does not indicate any symptoms associated bm8 with coronavirus-19. Ebola Screen: Patient negative for fever greater than or equal to 101.5 degrees Fahrenheit, and additional compatible Ebola Virus Disease symptoms Patient denies exposure to infectious person. Patient denies travel to an Ebola-affected area in the 21 days before illness onset. No symptoms or risks identified at this time. Initial Sepsis Screen: Does the patient meet any 2 criteria? RR > 20 per min. HR > 90 bpm. Yes Does the patient have a suspected source of infection? No. Patient's initial sepsis screen is negative. Risk Assessment: Do you want to hurt yourself or someone else? Patient reports no desire to harm self or others. Onset of symptoms was April 30, 2024. Care prior to arrival: Medication(s) given: Albuterol Neb x 1, Atrovent Neb x 1, solumedrol 125 mg IV IV initiated. 20 GA, in the left antecubital area, Med neb given. Oxygen administered. via a nebulizer mask, via a non-rebreather mask. 23:50 Acuity: CAROLEE 2 bm8 Triage Assessment: 23:50 General: Appears distressed, uncomfortable, slender, well groomed, well developed, bm8 Behavior is cooperative, appropriate for age, anxious. Pain: Complains of pain in lumbar area, left low back and right low back Pain currently is 6 out of 10 on a pain scale. 23:50 EENT: No deficits noted. No signs and/or symptoms were reported regarding the EENT bm8 system. Neuro: No deficits noted. Level of Consciousness is awake, alert, obeys commands, Oriented to person, place, time, situation, Appropriate for age. Cardiovascular: Heart tones S1 S2 present Capillary refill is > 3 seconds in bilateral fingers Rhythm is sinus tachycardia. Respiratory: Reports shortness of breath labored breathing Airway is patent Respiratory effort is labored, pursed lip, Respiratory pattern is tachypnea Breath sounds with rales bilaterally. Breath sounds with wheezes bilaterally. Onset: The symptoms/episode began/occurred gradually, the patient has severe shortness of breath. GI: No signs and/or symptoms were reported involving the gastrointestinal system. : No signs and/or symptoms were reported regarding the genitourinary system. Derm: Skin is diaphoretic. Musculoskeletal: No signs and/or symptoms reported regarding the musculoskeletal system. Historical: - Allergies: 05/04 00:18 tramadol; bm8 - Home Meds: 00:18 Albuterol Inhl [Active]; Trelegy Ellipta inhalation [Active]; bm8 - PMHx: 00:18 Chronic obstructive lung disease; bm8 - PSHx: 00:18 None; bm8 - Immunization history:: Adult Immunizations up to date. - Infectious Disease History:: Denies. - Social history:: Smoking status: unknown. - Family history:: not pertinent. Screenin:25 [facility] ED Fall Risk Assessment (Adult) History of falling in the last 3 months, bm8 including since admission No falls in past 3 months (0 pts) Confusion or Disorientation No (0 pts) Intoxicated or Sedated No (0 pts) Impaired Gait Yes (1 pt) Mobility Assist Device Used No (0 pt) Altered Elimination No (0 pt) Score/Fall Risk Level 0 - 2 = Low Risk Oriented to surroundings, Maintained a safe environment, Educated pt \T\ family on fall prevention, incl call for assistance when getting out of bed, Assessed \T\ reinforced patient's understanding of fall precautions, Hourly rounding (assess needs \T\ fall precautionary measures) done, Used ambulatory aids as needed (educated on \T\ assisted with), Used gait belt as appropriate. Abuse screen: Denies threats or abuse. Nutritional screening: No deficits noted. Tuberculosis screening: No symptoms or risk factors identified. Assessment: 00:25 Reassessment:. Reassessment: Patient states symptoms have improved. General: Appears bm8 distressed, uncomfortable, Behavior is calm, cooperative, appropriate for age. Cardiovascular: Reports shortness of breath, Denies chest pain, Heart tones S1 S2 present Capillary refill < 3 seconds in bilateral fingers. Respiratory: Airway is patent Respiratory effort is even, labored, Respiratory pattern is regular, symmetrical, Breath sounds with rales bilaterally. Breath sounds with wheezes bilaterally. GI: No signs and/or symptoms were reported involving the gastrointestinal system. : No signs and/or symptoms were reported regarding the genitourinary system. EENT: No signs and/or symptoms were reported regarding the EENT system. Derm: No signs and/or symptoms reported regarding the dermatologic system. Musculoskeletal: No signs and/or symptoms reported regarding the musculoskeletal system. 02:00 Reassessment: Patient appears in no apparent distress at this time. Patient and/or bm8 family updated on plan of care and expected duration. Pain level reassessed. Patient is alert, oriented x 3, equal unlabored respirations, skin warm/dry/pink. pt has been on Bipap for about one hour. denies pain and states that she is feeling much better and no back pain either. Patient denies pain at this time. Patient states feeling better. Patient states symptoms have improved. Pain: Denies pain. Neuro: No deficits noted. Level of Consciousness is awake, alert, obeys commands, Oriented to person, place, time, situation, Appropriate for age. Cardiovascular: Denies chest pain, Capillary refill < 3 seconds in bilateral fingers Patient's skin is warm and dry. Rhythm is sinus rhythm. Respiratory: Airway is patent Respiratory effort is even, unlabored, Respiratory pattern is regular, symmetrical, Patient placed on BiPAP: Inspiratory Pressure: 18 Expiratory (EPAP) Pressure: 9 FiO2%: 60 Respiratory Rate: 22 Breath sounds with rales bilaterally. the patient has mild shortness of breath. 02:00 Derm: No signs and/or symptoms reported regarding the dermatologic system. Skin is bm8 intact, Skin is dry, Skin is pink, warm \T\ dry. Skin temperature is warm. 03:56 Reassessment: Patient appears in no apparent distress at this time. Patient and/or bm8 family updated on plan of care and expected duration. Pain level reassessed. pt is resting with eyes closed breathing is even unlabored with symmetrical rise and fall of chest while on Bipap. setting at 18/9 and 45%. 22 bpm Patient denies pain at this time. Patient states feeling better. Patient states symptoms have improved. 05:29 Reassessment: Patient appears in no apparent distress at this time. No changes from [facility] previously documented assessment. Patient and/or family updated on plan of care and expected duration. Pain level reassessed. Patient denies pain at this time. Respiratory: Airway is patent Respiratory effort is even, unlabored, Respiratory pattern is regular, symmetrical, Patient placed on BiPAP: Inspiratory Pressure: 18 Expiratory (EPAP) Pressure: 9 FiO2%: 45 Respiratory Rate: 22 Breath sounds with rhonchi bilaterally. Vital Signs: 05/03 23:50 BP 147 / 96; Pulse 107; Resp 26; Temp 98.3; Pulse Ox 66% on R/A; Weight 65 kg; Height 5 bm8 ft. 2 in. ; Pain 08/01; 05/04 00:25 BP 120 / 95; Pulse 109; Resp 24; Temp 98.3; Pulse Ox 94% on 10 lpm Nebulizer Mask; Pain 8 07/01; 02:00 BP 97 / 76; Pulse 88; Resp 22; Temp 98.3; Pulse Ox 99% on BiPAP; FiO2 60 %; Pain 0/10; bm8 03:56 BP 109 / 83; Pulse 94; Resp 22; Temp 98.3; Pulse Ox 99% ; Pain 0/10; bm8 05:29 BP 108 / 76; Pulse 91; Resp 22; Temp 98.3; Pulse Ox 97% on BiPAP; FiO2 45 %; Pain 0/10; 8 05/03 23:50 Body Mass Index 26.21 (65.00 kg, 157.48 cm) 8 05/03 23:50 Pain Scale: Adult bm8 05/04 00:25 Pain Scale: Adult bm8 02:00 Pain Scale: Adult bm8 03:56 Pain Scale: Adult bm8 05:29 Pain Scale: Adult bm8 Yumiko Coma Score: 00:25 Eye Response: spontaneous(4). Motor Response: obeys commands(6). Verbal Response: bm8 oriented(5). Total: 15. 02:00 Eye Response: spontaneous(4). Motor Response: obeys commands(6). Verbal Response: bm8 oriented(5). Total: 15. 03:37 Eye Response: spontaneous(4). Motor Response: obeys commands(6). Verbal Response: sp4 oriented(5). Total: 15. 03:56 Eye Response: spontaneous(4). Motor Response: obeys commands(6). Verbal Response: bm8 oriented(5). Total: 15. 05:29 Eye Response: spontaneous(4). Motor Response: obeys commands(6). Verbal Response: bm8 oriented(5). Total: 15. ED Course: 05/03 23:50 Patient arrived in ED. jj6 23:50 Arm band placed on right wrist. bm8 23:53 Adam Valenzuela MD is Attending Physician. sp4 05/04 00:05 Uli Black RN is Primary Nurse. bm8 00:10 Initial lab(s) drawn, by pa, sent to lab. First set of blood cultures drawn by me. vk 00:14 Inserted saline lock: 20 gauge in right antecubital area, using aseptic technique. vk Blood collected. Flushed with 10 mL NS. 00:18 Triage completed. bm8 00:25 Maintain EMS IV. Dressing intact. Good blood return noted. Site clean \T\ dry. Gauge \T\ bm 8 site: 20g lac. Flushed with 10 mL NS. Oxygen administered via a nebulizer mask. Response to oxygen therapy: symptoms improved. 00:25 Patient has correct armband on for positive identification. Bed in low position. Call bm8 light in reach. Side rails up X2. Adult w/ patient. Client placed on continuous cardiac and pulse oximetry monitoring. NIBP monitoring applied. career center director on. Pulse ox on. NIBP on. Door closed. Noise minimized. Warm blanket given. Pillow given. Verbal reassurance given. Head of bed elevated. 00:30 XRAY CXR (1 view) In Process Unspecified. EDMS 03:36 Bertram Arvizu MD is Hospitalizing Provider. sp4 05:29 No provider procedures requiring assistance completed. Patient admitted, IV remains in bm8 place. 05:29 Provided Education on: need for admission. bm8 Administered Medications: 00:00 Drug: Albuterol Inhalation 2.5 mg Inhalation every 20 minutes x3 Route: Inhalation; bm8 00:00 Drug: Ipratropium Inhalation Aerosol 0.5 mg Inhalation once; Every 20 min for a total bm8 of 3 treatments x3 Route: Inhalation; 00:15 Drug: morphine IVP or IV 4 mg IVP once over 4 mins Route: IVP; Infused Over: 4 mins; bm8 Site: left antecubital; 01:59 Follow up: Response: No adverse reaction bm8 00:15 Drug: Ondansetron IVP 4 mg IVP once; over 2 minutes Route: IVP; Site: left antecubital; bm8 01:58 Follow up: Response: No adverse reaction bm8 00:15 Drug: Methocarbamol IVPB 1 grams IVPB once over 1 hrs; (mix in NS 100 mL) Route: IVPB; bm8 Infused Over: 1 hrs; Site: left antecubital; :58 Follow up: Response: No adverse reaction; IV Status: Completed infusion bm8 00:20 Drug: Albuterol Inhalation 2.5 mg Inhalation every 20 minutes x3 Route: Inhalation; bm8 00:20 Drug: Ipratropium Inhalation Aerosol 0.5 mg Inhalation once; Every 20 min for a total bm8 of 3 treatments x3 Route: Inhalation; 00:50 Drug: Albuterol Inhalation 2.5 mg Inhalation every 20 minutes x3 Route: Inhalation; bm8 02:00 Follow up: Response: No adverse reaction bm8 00:50 Drug: Ipratropium Inhalation Aerosol 0.5 mg Inhalation once; Every 20 min for a total bm8 of 3 treatments x3 Route: Inhalation; 02:00 Follow up: Response: No adverse reaction bm8 03:51 Not Given (Patient Refused): morphineor iv 4 mg IVP once over 4 mins bm8 03:51 Not Given (Patient Refused): ondansetron 4 mg IVP once; over 2 minutes bm8 03:51 Drug: Rocephin - Rocephin (cefTRIAXone) IVPB 1 grams IVPB once over 30 mins; (mix in 50 bm8 mL NS) Route: IVPB; Infused Over: 30 mins; Site: right antecubital; 05:31 Follow up: Response: No adverse reaction; IV Status: Completed infusion bm8 03:51 Drug: Zithromax IVPB 500 mg IVPB once over 1 hrs; mix in 250 mL NS Route: IVPB; Infused bm8 Over: 1 hrs; Site: right antecubital; 05:31 Follow up: Response: No adverse reaction; IV Status: Completed infusion bm8 Medication: 00:25 VIS not applicable for this client. bm8 Outcome: 03:37 Decision to Hospitalize by Provider. sp4 05:29 Admitted to ICU accompanied by nurse, via stretcher, room icu 7, with oxygen, with bm8 chart, 05:29 Condition: stable 05:29 Instructed on follow up and referral plans. the need for admit, Demonstrated understanding of instructions, follow-up care, 05:40 Patient left the ED. bm8 Signatures: Dispatcher [employer] EDLeonarda Solis Sergey, MD MD sp4 Elsie Morelos Brad, RN RN bm8 Corrections: (The following items were deleted from the chart) 00:07 00:06 Ipratropium Inhalation Aerosol 0.5 mg Inhalation bm8 bm8 00:07 00:06 Albuterol Inhalation 2.5 mg Inhalation bm8 bm8
[2024-05-04] MEDS ORDERED: AZITHROMYCIN 500 MG INJ IVPB ONE (03:44)
[2024-05-04] MEDS ORDERED: CEFTRIAXONE 1000 MG/VIAL ONE (03:44)
--- NOTE | 2024-05-04 05:02 | RAD REPORT ---
TIME OF STUDY: 05/03/2024 11:54 PM CDT REASON FOR EXAM: CHEST PAIN COMPARISON: None. FINDINGS: AP view of the chest was obtained, chest 1 view. Lungs: The lungs are adequately inflated. No dense airspace consolidation is noted. Prominent interst itial markings are noted bilaterally with mild bronchial wall thickening. This may be due to interstitial pulmonary edema and/or interstitial pneumonia. Pleura: No pneumothorax. There is no pleural effusion. Heart and Mediastinum: Normal cardiomediastinal silhouette and great vessels.. Bones: No acute bony abnormality.. IMPRESSION: 1. Prominent interstitial markings with bronchial wall thickening may be due to interstitial pulmonar y edema and/or interstitial pneumonia. Electronically signed by: Andre Camejo MD 05/04/2024 12:57 AM CDT RP Due to temporary technical issues with the PACS/[employer] reporting system, reports are being sunil d by the in-house radiologist without review as a courtesy to ensure prompt reporting the interpreting radiologist is fully responsible for the content of the report. Transcribed Date/Time: 05/04/2024 5:01 AM
[2024-05-04] MEDS ORDERED: ALBUTEROL 2.5 MG/3 ML NEB SOL NEB PRN (05:16)
[2024-05-04] MEDS ORDERED: ONDANSETRON 4 MG/2 ML VIAL IV PRN (05:16)
--- NOTE | 2024-05-04 05:16 | P.HP ---
Certification for Inpatient Patient admitted to: Inpatient With expected LOS: >2 Midnights Practitioner: I am a practitioner with admitting privileges, knowledge of patient current condition, hospital course, and medical plan of care. Services: Services provided to patient in accordance with Admission requirements found in Title 42 Section 412.3 of the Code of Federal Regulations Patient History Date of Service: 05/04/24 Reason for admission: SOB History of Present Illness: 78 year-old female patient with past medical history significant for coronary artery disease, hypertension, hyperlipidemia, COPD who was brought to ER with worsening of shortness of breath. Denies any fever or chills. Associated with cough with mucoid expectoration. Started having worsening of shortness of breath for the last 2 days and has been progressively worsening prompting her to come to the ER. Denies any nausea vomiting or diarrhea. No sick contacts. Most of the history is obtained from the chart review and also talking to the ER physician as the patient is current continuous BiPAP Patient was assessed in the ER and was evaluated for management of COPD exacerbation. She was found to have hypercapnic respiratory failure and was placed on BiPAP. Allergies tramadol Allergy (Mild, Verified 02/28/23 16:50) Itching Home medications list reviewed: Yes Home Medications: Albuterol Sulfate [Proair Hfa] 2 puff PO Q6H PRN 08/17/21 Hydrocodone Bit/Acetaminophen [[place] 7.5-325 Tablet] 1 tab PO BID PRN 08/17/21 Citalopram Hydrobromide [Citalopram HBr] 40 mg PO DAILY 05/08/23 Fluticasone/Umeclidin/Vilanter [Trelegy Ellipta 100-62.5-25] 1 each IH DAILY 05/08/23 Prednisolone Sod Phosphate [Prednisolone Sodium Phos Odt] 10 mg PO DAILY 05/08/23 Trazodone HCl 50 mg PO BEDTIME PRN 05/08/23 levoFLOXacin [Levaquin*] 750 mg PO DAILY 5 Days #5 tab 05/11/23 predniSONE [Prednisone*] 20 mg PO BIDWM 4 Days #2 tab 05/11/23 - Past Medical/Surgical History Diabetic: No Past Medical History: Reviewed- Non-Contributory -: COPD -: Hypertension -: Hyperlipidemia Past Surgical History: Reviewed- Non-Contributory - Family History Family History: Reviewed- Non-Contributory - Social History Smoking Status: Former smoker Alcohol use: No CD- Drugs: No Caffeine use: Yes Review of Systems 10-point ROS is otherwise unremarkable Physical Examination - Vital Signs Temperature: 97.8 F Blood Pressure: 124/67 Pulse: 93 Respirations: 20 Pulse Ox (%): 94 - Physical Exam General: Alert, Oriented x3, Moderate distress HEENT: Atraumatic, Normocephalic Neck: Supple Respiratory: Diminished, Crackles/rales, Expiratory wheezes Cardiovascular: Regular rate/rhythm, Normal S1 S2 Capillary refill: <2 Seconds Gastrointestinal: Soft and benign, W/out hepatosplenomegaly Musculoskeletal: No clubbing, No swelling Integumentary: No rashes, No breakdown Neurological: Normal speech, Normal strength at 5/5 x4 extr, Cranial nerves 3-12 intact, Normal reflexes 2+ Lymphatics: No axilla or inguinal lymphadenopathy - Studies Laboratory Data (last 24 hrs) 05/04/24 05/04/24 05/04/24 00:10 00:10 00:10 WBC 20.80 H Hgb 13.6 Hct 41.9 Plt Count 333 PT 13.0 INR 1.15 APTT 26.7 L Sodium 141 Potassium 3.4 L BUN 20 H Creatinine 0.66 Glucose 196 H Magnesium 1.8 Total Bilirubin 0.5 AST 30 ALT 47 Alkaline Phosphatase 90 Lipase 19 Assessment and Plan - Plan Acute COPD exacerbation Monitor closely on telemetry Started on bronchodilators Oxygen supplementation Steroids added ABG findings noted Chest x-ray findings noted Pulmonology consult Acute hypoxic hypercapnic respiratory failure ABG findings noted with hypercapnia Placed on BiPAP Will admit to ICU Monitor closely Pneumonia: Leukocytosis noted Chest x-ray shows possible interstitial pneumonia versus bronchitis Levaquin started for empiric therapy. Monitor closely. Hypertension: Continue home medications and titrate as needed Hyperlipidemia: Continue home medications Prophylaxis: Lovenox for DVT prophylaxis. CODE STATUS: Full code . Discharge Plan: Home Plan to discharge in: 48 Hours - Advance Directives Does patient have a Living Will: No Does patient have a Durable POA for Healthcare: No - Code Status/Comfort Care Code Status: Full Code Time Spent Managing Pts Care (In Minutes): 54
[2024-05-04] MEDS ORDERED: Levofloxacin500mg IV 500 MG/100 ML BAG IV SCH (06:00)
[2024-05-04] MEDS: LEVOFLOXACIN 750MG/D5W 150 ML IV SCH ×2 (06:00→08:56)
[2024-05-04] MEDS: METHYLPREDNISOLONE 125 MG INJ IV SCH (06:54)
--- NOTE | 2024-05-04 07:29 | P.PN ---
Date of Service: 05/04/24 Subjective: Wore BiPAP for a few hours, placed in ED now tolerating 3-4L NC. Typically wears 2L NC at home. breathing feels slightly easier afebrile ROS: 10 point ROS as noted above, otherwise negative Physical Exam: GEN: Alert, oriented, NAD CV: Regular rate and rhythm, no edema Pulm: Nonlabored respirations on 3L NC, diminished, expiratory wheezes, Crackles/rales ABD: soft, nontender, nondistended Integumentary: No rashes Neuro: Normal speech, normal affect Problem List: Acute hypoxic/Hypercapnic respiratory failure Acute on chronic COPD exacerbation (on home O2/chronic steroids) Hx of CAD Hypertension Hyperlipidemia Hypothyroidism Anxiety/Depression Acute hypoxic/Hypercapnic respiratory failure Acute on chronic COPD exacerbation (on home O2/chronic steroids) on admission, presents with worsening SOB, diaphoresis x4 days. On chronic steroids at home. Typically uses 2L NC at home. Takes Trelegy daily, prednisone daily CXR (05/04): Prominent interstitial markings bilaterally with bronchial wall thickening. Pneumonia vs Edema Dr. Rogers, pulm consulted ABG with elevated PCO2, HCO3. Placed on BiPAP in ED and admitted to ICU. 05/04 Off BiPAP this morning. Reportedly wore for a few hours in ED, now tolerating 3-4L NC Start levaquin to cover possible pneumonia (05/04-) check UA, follow blood cultures IV steroids, Duonebs Hx of CAD Hypertension Hyperlipidemia Hypothyroidism Anxiety/Depression confirm home meds, restart as appropriate VTE: Lovenox Code: Full Dispo: possible downgrade within next 24hrs Home, ~3 days Time Spent Managing Pts Care (In Minutes): 55
[2024-05-04 07:52] LABS: Absolute Lymphocytes (CBC) 0.3 K/uL (0.7-4.9); Absolute Monocytes 0.3 K/uL (0.1-1.3); Absolute Neutrophil 14.9 K/uL (1.8-8.0); Hematocrit 38.9 % (36.0-45.0); Hemoglobin 12.6 g/dL (12.0-15.0); MCH 30.8 pg (27.0-35.0); MCHC 32.4 g/dL (32.0-36.0); MPV 7.1 fL (7.6-11.3); Monocytes % 1.9 % (3.3-12.3); Neutrophils % 96.1 % (41.7-73.7); Platelets 283 thou/uL (152-406); RBC Red Blood Cell Count 4.09 M/uL (3.86-4.86); Red Cell Distribution Width 14.9 % (12.1-15.2)
[2024-05-04] MEDS: IPRATROPIUM BROM 0.5MG/2.5ML NEB SCH (07:53)
[2024-05-04 08:04] LABS: Albumin 2.7 g/dL (3.4-5.0); Albumin/Globulin Ratio 0.7 (1.1-1.8); Anion Gap 4.7 mEq/L (5.0-15.0); Bilirubin Total 0.3 mg/dL (0.2-1.0); Potassium 3.7 mEq/L (3.5-5.1); Protein, Total 6.7 g/dL (6.4-8.2)
[2024-05-04 08:26] LABS: Phosphorus 3.2 mg/dL (2.5-4.9)
[2024-05-04] MEDS: ROFLUMILAST 500 MCG TABLET PO SCH (08:56)
[2024-05-04] MEDS: METHYLPREDNISOLONE 40 MG INJ IV SCH (08:56)
[2024-05-04] MEDS: ENOXAPARIN 40 MG/0.4 ML SQ SCH (08:56)
[2024-05-04] MEDS: ACETAMINOPHEN 325 MG TABLET PO PRN (10:41)
[2024-05-04] MEDS: IBUPROFEN 600 MG TAB ONE (11:58)
[2024-05-04] MEDS: IBUPROFEN 600 MG TAB PO ONE (12:06)
--- NOTE | 2024-05-04 12:19 | P.CNS ---
Date of Consult: 05/04/24 Reason for Consult: Respiratory failure Chief Complaint: SOB History of Present Illness: Patient is 78 years of age with a history of COPD has been having problems since January on and off treated with antibiotics steroids no relief became progressively worse ended up here in the emergency room complaining of productive cough previously responded to levofloxacin. With hypoxic hypercapnic respiratory failure Allergies tramadol Allergy (Mild, Verified 02/28/23 16:50) Itching Home Medications: Albuterol Sulfate [Proair Hfa] 2 puff PO Q6H PRN 08/17/21 Hydrocodone Bit/Acetaminophen [[place] 7.5-325 Tablet] 1 tab PO BID PRN 08/17/21 Citalopram Hydrobromide [Citalopram HBr] 40 mg PO DAILY 05/08/23 Prednisolone Sod Phosphate [Prednisolone Sodium Phos Odt] 10 mg PO DAILY 05/08/23 Trazodone HCl 50 mg PO BEDTIME PRN 05/08/23 Ipratropium/Albuterol Sulfate [Iprat-Albut 0.5-3(2.5) mg/3 ml] 3 ml IH Q6H PRN 05/04/24 predniSONE [Prednisone*] 20 mg PO BIDWM 05/04/24 - Past Medical/Surgical History Diabetic: No -: COPD -: Hypertension -: Hyperlipidemia - Social History Smoking Status: Former smoker, Unknown if ever smoked Alcohol use: No CD- Drugs: No Caffeine use: Yes Review of Systems General: Weakness Respiratory: Cough, Shortness of Breath Physical Examination Temp Pulse Resp BP Pulse Ox 97.3 F 77 18 112/79 97 05/04/24 12:00 05/04/24 12:00 05/04/24 12:00 05/04/24 12:00 05/04/24 12:00 General: Alert, In no apparent distress, Oriented x3 Respiratory: Diminished, Expiratory wheezes Cardiovascular: No edema, Regular rate/rhythm, Normal S1 S2 Gastrointestinal: Normal bowel sounds, Soft and benign Laboratory Data (last 24 hrs) 05/04/24 05/04/24 05/04/24 00:10 00:10 00:10 WBC 20.80 H Hgb 13.6 Hct 41.9 Plt Count 333 PT 13.0 INR 1.15 APTT 26.7 L Sodium 141 Potassium 3.4 L BUN 20 H Creatinine 0.66 Glucose 196 H Magnesium 1.8 Total Bilirubin 0.5 AST 30 ALT 47 Alkaline Phosphatase 90 Lipase 19 - Problems (1) Respiratory failure with hypoxia and hypercapnia Current Visit: Yes Status: Acute Plan: Patient is 78 years of age admitted with worsening cough congestion admitted with respiratory failure presumed acute on chronic since bicarbonate is elevated signs oxygenation stable so far titrate sat to 90% continue with levofloxacin changed to p.o. sputum culture chest x-ray shows COPD changes patient needs a flutter valve Qualifiers: Chronicity: acute on chronic Qualified Code(s): J96.21 - Acute and chronic respiratory failure with hypoxia; J96.22 - Acute and chronic respiratory failure with hypercapnia
[2024-05-04] MEDS: HYDROCODONE/APAP 7.5/325 MG TAB PO PRN (18:56)
[2024-05-04] MEDS: TRAZODONE 50 MG TABLET PO PRN (21:35)
[2024-05-05] MEDS: ALBUTEROL 2.5 MG/3 ML NEB SOL NEB SCH ×2 (01:00→19:13)
[2024-05-05 05:58] LABS: Absolute Lymphocytes (CBC) 0.7 K/uL (0.7-4.9); Absolute Monocytes 0.4 K/uL (0.1-1.3); Absolute Neutrophil 16.2 K/uL (1.8-8.0); Basophils % 0.1 % (0-1.3); Hematocrit 36.5 % (36.0-45.0); Hemoglobin 12.3 g/dL (12.0-15.0); Lymphocytes % 3.8 % (15.3-44.8); MCH 31.6 pg (27.0-35.0); MCHC 33.5 g/dL (32.0-36.0); MCV 94.3 fL (80-100); MPV 7.4 fL (7.6-11.3); Monocytes % 2.4 % (3.3-12.3); Neutrophils % 93.7 % (41.7-73.7); Platelets 289 thou/uL (152-406); RBC Red Blood Cell Count 3.88 M/uL (3.86-4.86); Red Cell Distribution Width 14.5 % (12.1-15.2)
[2024-05-05 06:18] LABS: Albumin 2.5 g/dL (3.4-5.0); Albumin/Globulin Ratio 0.6 (1.1-1.8); Anion Gap 3.3 mEq/L (5.0-15.0); Bilirubin Total 0.2 mg/dL (0.2-1.0); Magnesium 2.2 mg/dL (1.6-2.4); Phosphorus 2.6 mg/dL (2.5-4.9); Potassium 4.3 mEq/L (3.5-5.1); Protein, Total 6.5 g/dL (6.4-8.2)
[2024-05-05 07:28] LABS: Arterial Blood Carboxyhemoglob 0.6 % (0-1.5); Blood Gas Oxyhemoglobin 96.9 % (94-97); Blood Gas THB 12.8 g/dl (12-18); Blood O2 Saturation 98.6 % (92-98.5)
--- NOTE | 2024-05-05 07:36 | P.PN ---
Date of Service: 05/05/24 Subjective: feels breathing is improving daily tolerated BiPAP this morning, on 4L NC during the day cough continues ~same, having some difficulty coughing up phlegm ~600 mL urine output last ~24 hours afebrile ROS: 10 point ROS as noted above, otherwise negative Physical Exam: GEN: Alert, oriented CV: Regular rate and rhythm, no edema Pulm: Nonlabored respirations on 4L NC, diminished, expiratory wheezes ABD: soft, nontender, nondistended Neuro: Normal speech, normal affect Problem List: Acute hypoxic/Hypercapnic respiratory failure secondary to COPD exacerbation Acute on chronic COPD exacerbation (on home O2/chronic steroids) Hx of CAD Hypertension Hyperlipidemia Hypothyroidism Anxiety/Depression Acute hypoxic/Hypercapnic respiratory failure Acute on chronic COPD exacerbation (on home O2/chronic steroids) on admission, presents with worsening SOB, diaphoresis x4 days. On chronic steroids at home. Typically uses 2L NC at home. Takes Trelegy daily, prednisone daily CXR (05/04): Prominent interstitial markings bilaterally with bronchial wall thickening. Pneumonia vs Edema Dr. Rogers, pulm consulted ABG with elevated PCO2, HCO3. Placed on BiPAP in ED and admitted to ICU. 05/04 - Off BiPAP this morning. Reportedly wore for a few hours in ED, now tolerating 3-4L NC Start levaquin to cover possible pneumonia (05/04-) check UA, follow blood cultures IV steroids, Duonebs Daliresp added per pulm 05/05 - Repeat ABG with improvement in PCO2. Tolerated BiPAP this morning - a few hours Mucinex ordered for cough Continues with daily improvement. Tolerating 4L NC Switch levaquin to PO downgrade from ICU work on ambulating, desat quickly with standing up at bedside Hx of CAD Hypertension Hyperlipidemia Hypothyroidism Anxiety/Depression confirm home meds, restart as appropriate BP soft VTE: Lovenox Code: Full Dispo: likely Home, ~2-3 days has home O2 Time Spent Managing Pts Care (In Minutes): 55
[2024-05-05] MEDS: CITALOPRAM 10 MG TABLET PO SCH (08:00)
[2024-05-05] MEDS: levoFLOXacin 750 MG TAB PO SCH (08:11)
[2024-05-05] MEDS: GUAIFENESIN 600 MG SA TAB PO SCH (08:11)
[2024-05-05] MEDS: Fluticasone/Umeclidin/Vilanter [Trelegy Ellipta 100-62.5-25] Blst.W.Dev *PT OWN MED IH SCH (08:12)
[2024-05-05] MEDS ORDERED: HOME MED 1 EA UNK (Citalopram Hydrobromide [Citalopram Hbr] 40 MG Tablet) PO SCH (09:00)
--- NOTE | 2024-05-05 14:43 | EKG ---
Test Date: 2024-05-04 Test Time: 01:22:36 Crib Pad Maker: GWYN MEASUREMENT RESULTS: Intervals: Rate: 99 [place]: 122 QRSD: 76 QT: 328 QTc: 420 [place]: P: 77 [place]: 122 QRS: 34 T: 64 INTERPRETIVE STATEMENTS: Sinus rhythm with premature atrial complexes Nonspecific ST abnormality Abnormal ECG Compared to ECG 05/07/2023 19:46:30 Atrial premature complex(es) now present ST (T wave) deviation now present Sinus tachycardia no longer present Left anterior fascicular block no longer present Myocardial infarct finding no longer present Electronically Signed On 05-05-24 14:40:19 CDT by Adarsh Rosa
[2024-05-05] MEDS ORDERED: ALBUTEROL 2.5 MG/3 ML NEB SOL NEB PRN (16:00)
[2024-05-05 22:22] LABS: Sqamous Epithelial <5 /HPF (None Seen); Urine Bacteria None Seen /HPF (<20); Urine Bilirubin NEGATIVE (Negative); Urine Blood Negative (Negative); Urine Clarity Extremely Turbid (Clear); Urine Color Light-Yellow (Yellow); Urine Crystals Unidentified Few /HPF (None Seen); Urine Culture Reflex Order NOT NEEDED; Urine Glucose NEGATIVE (Negative); Urine Ketones NEGATIVE (Negative); Urine Microscopic Reflex YN ORDER UMIC; Urine Nitrite NEGATIVE (Negative); Urine Protein TRACE (Negative); Urine RBC <5 /HPF (None Seen); Urine Urobilinogen Normal (Normal); Urine WBC <5 /HPF (<5); Urine Yeast (Budding) Trace /HPF (None Seen); Urine pH 6.5 (5.0-7.0)
[2024-05-06 05:41] LABS: Absolute Lymphocytes (CBC) 0.6 K/uL (0.7-4.9); Absolute Monocytes 0.4 K/uL (0.1-1.3); Absolute Neutrophil 18.5 K/uL (1.8-8.0); Basophils % 0.1 % (0-1.3); Hematocrit 39.6 % (36.0-45.0); Lymphocytes % 3.3 % (15.3-44.8); MCH 31.1 pg (27.0-35.0); MCHC 32.8 g/dL (32.0-36.0); MCV 94.6 fL (80-100); MPV 7.1 fL (7.6-11.3); Monocytes % 1.9 % (3.3-12.3); Neutrophils % 94.7 % (41.7-73.7); Nucleated Red Blood Cells % 0.1 % (0-0); Platelets 303 thou/uL (152-406); RBC Red Blood Cell Count 4.19 M/uL (3.86-4.86); Red Cell Distribution Width 14.5 % (12.1-15.2)
[2024-05-06 05:59] VITALS: BMI 26.0
[2024-05-06 06:11] LABS: Anion Gap 4.5 mEq/L (5.0-15.0); Magnesium 2.4 mg/dL (1.6-2.4); Potassium 4.5 mEq/L (3.5-5.1)
--- NOTE | 2024-05-06 07:49 | P.PN ---
Date of Service: 05/06/24 Subjective: feeling improvement daily tolerated BiPAP for ~7 hours overnight Still weak. Denies dizziness when standing yesterday, desaturated quickly with standing afebrile ROS: 10 point ROS as noted above, otherwise negative Physical Exam: GEN: Alert, oriented CV: Regular rate and rhythm, no edema Pulm: Nonlabored respirations on 3L NC during the day, BiPAP at night, diminished, expiratory wheezes Neuro: Normal speech, normal affect Problem List: Acute hypoxic/Hypercapnic respiratory failure secondary to COPD exacerbation Acute on chronic COPD exacerbation (on home O2/chronic steroids) Hx of CAD Hypertension Hyperlipidemia Hypothyroidism Anxiety/Depression Acute hypoxic/Hypercapnic respiratory failure Acute on chronic COPD exacerbation (on home O2/chronic steroids) on admission, presents with worsening SOB, diaphoresis x4 days. On chronic steroids at home. Has home O2 she uses PRN. Takes Trelegy daily, prednisone daily CXR (05/04): Prominent interstitial markings bilaterally with bronchial wall thickening. Pneumonia vs Edema Dr. Rogers, pulm consulted ABG with elevated PCO2, HCO3. Placed on BiPAP in ED and admitted to ICU. Blood cx (05/04): NGTD 05/04 - Off BiPAP this morning. Reportedly wore for a few hours in ED, now tolerating 3-4L NC Started IV levaquin to cover possible pneumonia (05/04-) IV steroids, Duonebs Daliresp added per pulm 05/05 - Repeat ABG with improvement in PCO2. Switch levaquin to PO downgrade from ICU work on ambulating, desat quickly with standing up at bedside. Sat in chair for a while. 05/06 - tolerated BiPAP for ~[address] Rogers feels patient would benefit from NIV, in process of being setup - likely to be set up / delivered after discharge Deescalate IV steroids to oral Prednisone 20 mg BID ambulate patient Hx of CAD Hypertension Hyperlipidemia Hypothyroidism Anxiety/Depression confirm home meds, restart as appropriate VTE: Lovenox Code: Full Dispo: likely Home, ~1-2 days pending SpO2 with ambulating / oxygen requirement Time Spent Managing Pts Care (In Minutes): 55
--- NOTE | 2024-05-06 10:07 | P.PN ---
Subjective Date of Service: 05/05/24 Chief Complaint: Respiratory failure Subjective: Improving (Patient is improving doing well has BiPAP is helping) Review of Systems General: Weakness Respiratory: Shortness of Breath Physical Examination - Vital Signs Temperature: 97.4 F Blood Pressure: 134/88 Pulse: 83 Respirations: 22 Pulse Ox (%): 95 - Physical Exam General: Alert, Oriented x3 Respiratory: Diminished, Expiratory wheezes Cardiovascular: No edema, Regular rate/rhythm, Normal S1 S2 Assessment And Plan - Current Problems (Diagnosis) (1) Respiratory failure with hypoxia and hypercapnia Current Visit: Yes Status: Acute Plan: Patient is 78 years of age with chronic respiratory failure with hypoxia and hypercapnia is currently stable doing better on current medications patient will benefit from a noninvasive ventilator and admissions to the hospital PAP not deemed suitable no history of sleep apnea titrate sat to 90% Qualifiers: Chronicity: acute on chronic Qualified Code(s): J96.21 - Acute and chronic respiratory failure with hypoxia; J96.22 - Acute and chronic respiratory failure with hypercapnia
[2024-05-06] MEDS: predniSONE 20 MG TAB PO SCH (20:01)
[2024-05-07 05:27] LABS: Anion Gap 6.3 mEq/L (5.0-15.0); Magnesium 2.3 mg/dL (1.6-2.4); Potassium 4.3 mEq/L (3.5-5.1)
--- NOTE | 2024-05-07 10:31 | P.DS ---
Admission Date: 05/04/24 Discharge Date: 05/07/24 Disposition: ROUTINE DISCHARGE Discharge Condition: GOOD Reason for Admission: Respiratory failure Consultations: Pulmonology - Dr. Rogers Brief History of Present Illness: 78 yo F, PMH: coronary artery disease, hypertension, hyperlipidemia, COPD Patient was brought to ER with worsening of shortness of breath. Denies any fever or chills. Associated with cough with mucoid expectoration. Started having worsening of shortness of breath for the last 2 days and has been progressively worsening prompting her to come to the ER. Denies any nausea vomiting or diarrhea. No sick contacts. Most of the history is obtained from the chart review and also talking to the ER physician as the patient is current continuous BiPAP Patient was assessed in the ER and was evaluated for management of COPD exacerbation. She was found to have hypercapnic respiratory failure and was placed on BiPAP. Hospital Course: Problem List: Acute hypoxic/Hypercapnic respiratory failure secondary to COPD exacerbation Acute on chronic COPD exacerbation (on home O2/chronic steroids) Hx of CAD Hypertension Hyperlipidemia Hypothyroidism Anxiety/Depression Physician discharge instructions: Patient presented with worsening SOB, diaphoresis x4 days secondary to acute on chronic COPD exacerbation. ABG on admission with elevated PCO2 (90.7), HCO3 (38). Patient was placed on BiPAP in ED and admitted to ICU for continuous BIPAP, however was able to come off BIPAP within a few hours. Chest xray on admission noted Prominent interstitial markings bilaterally with bronchial wall thickening concerning for pneumonia vs pulmonary edema. Patient was started on IV steroids, nebulizer treatments, daliresp and had improvement and her symptoms. She was also started on IV levaquin to cover possible pneumonia. She was noted to have a leukocytosis on admission (20.8) although she is known to be on chronic daily steroids at home. Blood cultures have been without growth since 05/04. Repeat ABG 05/05 demonstrated improvement in PCO2. IV steroids were deescalated to oral prednisone and patient continued to improve. Patient was feeling better, breathing more comfortably on her home oxygen settings, afebrile > 48 hours, and was deemed stable for discharge. Dr. Rogers (Pulmonology) felt patient would benefit from NIV at home, currently in the process of being set up. NIV to be setup and delivered after discharge. Follow up with Dr. Rogers regarding this. Use home oxygen as needed to maintain oxygen saturation > 90 and at night while sleeping. Patient is to complete 1 more week of oral levaquin to cover possible pneumonia. Follow up with Dr. Rogers in 1-2 weeks for further management. Medications: Levaquin x 1 week Prednisone - 20mg twice a day x 4 days, then 20mg daily x 6 days for total 10 day course. Resume daily chronic steroid if on one after completing this prednisone course. Mucinex twice daily x 1 week Follow up: PCP 3-[address] Rogers, Pulmonology in 1-2 weeks Please call to schedule / confirm appointments Physical Exam: GEN: Alert, oriented CV: Regular rate and rhythm, no edema Pulm: Nonlabored respirations on 3L NC, clear bilaterally Neuro: Normal speech, normal affect Vital Signs/Physical Exam: Temp Pulse Resp BP Pulse Ox 97.8 F 68 20 133/81 94 05/07/24 08:00 05/07/24 08:00 05/07/24 08:00 05/07/24 08:00 05/07/24 08:00 Laboratory Data at Discharge: WBC 19.50 thou/uL (4.3-10.9) H 05/06/24 05:24 Hgb 13.0 g/dL (12.0-15.0) 05/06/24 05:24 Hct 39.6 % (36.0-45.0) 05/06/24 05:24 Plt Count 303 thou/uL (152-406) 05/06/24 05:24 PT 13.0 SECONDS (10-13.0) 05/04/24 00:10 INR 1.15 05/04/24 00:10 APTT 26.7 SECONDS (27.2-37.4) L 05/04/24 00:10 Sodium 140 mEq/L (136-145) 05/07/24 04:22 Potassium 4.3 mEq/L (3.5-5.1) 05/07/24 04:22 BUN 31 mg/dL (7-18) H 05/07/24 04:22 Creatinine 0.59 mg/dL (0.55-1.02) 05/07/24 04:22 Glucose 117 mg/dL (74-106) H 05/07/24 04:22 Phosphorus 2.6 mg/dL (2.5-4.9) 05/05/24 05:20 Magnesium 2.3 mg/dL (1.6-2.4) 05/07/24 04:22 Total Bilirubin 0.2 mg/dL (0.2-1.0) 05/05/24 05:20 AST 39 U/L (15-37) H 05/05/24 05:20 ALT 65 U/L (13-56) H 05/05/24 05:20 Alkaline Phosphatase 75 U/L (45-117) 05/05/24 05:20 Lipase 19 U/L (13-75) 05/04/24 00:10 Home Medications: Albuterol Sulfate [Proair Hfa] 2 puff PO Q6H PRN 08/17/21 Hydrocodone Bit/Acetaminophen [[place] 7.5-325 Tablet] 1 tab PO BID PRN 08/17/21 Citalopram Hydrobromide [Citalopram HBr] 40 mg PO DAILY 05/08/23 Trazodone HCl 50 mg PO BEDTIME PRN 05/08/23 Fluticasone/Umeclidin/Vilanter [Trelegy Ellipta 100-62.5-25] 1 each IH DAILY 05/04/24 Ipratropium/Albuterol Sulfate [Iprat-Albut 0.5-3(2.5) mg/3 ml] 3 ml IH Q6H PRN 05/04/24 Guaifenesin [Mucinex] 600 mg PO BID 7 Days #14 tab 05/07/24 levoFLOXacin [Levaquin*] 750 mg PO DAILY 7 Days #7 tab 05/07/24 predniSONE [Prednisone*] 20 mg PO SEECOM 10 Days #14 tab 05/07/24 New Medications: levoFLOXacin [Levaquin*] 750 mg PO DAILY 7 Days #7 tab Guaifenesin [Mucinex] 600 mg PO BID 7 Days #14 tab predniSONE [Prednisone*] 20 mg PO SEECOM 10 Days #14 tab Physician Discharge Instructions: Physician discharge instructions: Patient presented with worsening SOB, diaphoresis x4 days secondary to acute on chronic COPD exacerbation. ABG on admission with elevated PCO2 (90.7), HCO3 (38). Patient was placed on BiP AP in ED and admitted to ICU for continuous BIPAP, however was able to come off BIPAP within a few hours. Chest xray on admission noted Prominent interstitial markings bilaterally with bronchial wall thickening concerning for pneumonia vs pulmonary edema. Patient was started on IV steroids, nebulizer treatments, daliresp and had improvement and her symptoms. She was also started on IV levaquin to cover possible pneumonia. She was noted to have a leukocytosis on admission (20.8) although she is known to be on chronic daily steroids at home. Blood cultures have been without growth since 05/04. Repeat ABG 05/05 demonstrated improvement in PCO2. IV steroids were deescalated to oral prednisone and patient continued to improve. Patient was feeling better, breathing more comfortably on her home oxygen settings, afebrile > 48 hours, and was deemed stable for discharge. Dr. Rogers (Pulmonology) felt patient would benefit from NIV at home, currently in the process of being set up. NIV to be setup and delivered after discharge. Follow up with Dr. Rogers regarding this. Use home oxygen as needed to maintain oxygen saturation > 90 and at night while sleeping. Patient is to complete 1 more week of oral levaquin to cover possible pneumonia. Follow up with Dr. Rogers in 1-2 weeks for further management. Medications: Levaquin x 1 week Prednisone - 20mg twice a day x 4 days, then 20mg daily x 6 days for total 10 day course. Resume daily chronic steroid if on one after completing this prednisone course. Mucinex twice daily x 1 week Follow up: PCP 3-[address] Rogers, Pulmonology in 1-2 weeks Please call to schedule / confirm appointments Followup: NONE,NONE [Primary Care Provider] - Time spent managing pt's care (in minutes): 45
[2024-05-07 10:53] VITALS: O2SAT 94
[2024-05-07 14:35] VITALS: BP 117/65; TEMP 98.1
== END 2024-05-07 15:34 | disposition home or self-care (01) | DRG 193 ==
LOC: ER 23:49 → 3RD-ICU 05-04 05:16 → 2ND 05-06 14:24
PROVIDERS: ADMIT Family Medicine; ATTEND Hospitalist
PROC: 4A033R1 Measurement of Arterial Saturation, Peripheral, Percutaneous Approach (ICD-10-PCS; principal; 2024-05-04)
PROC: 5A09457 Assistance with Respiratory Ventilation, 24-96 Consecutive Hours, Continuous Positive Airway Pressure (ICD-10-PCS; 2024-05-04)
DX: J18.9 Pneumonia, unspecified organism (principal); J96.21 Acute and chronic respiratory failure with hypoxia; J96.22 Acute and chronic respiratory failure with hypercapnia; J44.0 Chronic obstructive pulmonary disease with (acute) lower respiratory infection; J44.1 Chronic obstructive pulmonary disease with (acute) exacerbation; I10 Essential (primary) hypertension; E78.5 Hyperlipidemia, unspecified; E03.9 Hypothyroidism, unspecified; F32.A Depression, unspecified; F41.9 Anxiety disorder, unspecified; G89.29 Other chronic pain; M54.9 Dorsalgia, unspecified; I25.10 Atherosclerotic heart disease of native coronary artery without angina pectoris; Z88.5 Allergy status to narcotic agent; Z99.81 Dependence on supplemental oxygen; Z79.52 Long term (current) use of systemic steroids; Z79.899 Other long term (current) drug therapy; Z87.891 Personal history of nicotine dependence
CPT/HCPCS: 36415; 36600; 71045; 80048; 80053; 80076; 81001; 82550; 82805; 83690; 83735; 83880; 84100; 84484; 85025; 85610; 85730; 87040; 87070; 87205; 93005; 94640; 94660; 94668; 99285; J0696; J1650; J2405; J2800; J2919; J7512; J7613; J7644